=== PATIENT | female | born 1930 | race Caucasian/White ===

== ENCOUNTER 2016-10-10 12:51 | Emergency (ER) | payer MEDICARE, BC ==
[~2016-10-10] VITALS: Ht 160 cm; Wt 60.0 kg
[~2016-10-10 12:51] MED LIST: 1-ME1LIQ PO; APIX2.5T PO; CARD240C6 PO; ESCI10TA PO
[2016-10-10 12:53] VITALS: BP 126/98; PULSE 102; RESP 16; TEMP 97.4; O2SAT 98
[2016-10-10 14:31] VITALS: RESP 16; O2SAT 98
[2016-10-10] MEDS ORDERED: LEXA10TA PO (14:31)
[2016-10-10] MEDS ORDERED: PLAQ200T PO (14:31)
[2016-10-10] MEDS ORDERED: CARD120C4 PO (14:31)
[2016-10-10] MEDS ORDERED: APIX2.5T PO (14:31)
[2016-10-10 15:11] LABS: AUTOMATED NEUTROPHIL # 3.9 TH/MM3 (1.8-7.7); BASOPHIL % 0.7 % (0.0-2.0); EOSINOPHIL # 0.1 TH/MM3 (0-0.4); EOSINOPHIL % 2.1 % (0.0-4.0); HEMATOCRIT 38.2 % (35.0-46.0); HEMO FLAGS DIFF FINAL; LYMPH % 16.5 % (9.0-44.0); LYMPHOCYTE # 0.9 TH/MM3 (1.0-4.8); MEAN CELL VOLUME 98.4 FL (80.0-100.0); MEAN CORPUSCULAR HEMOGLOBIN 33.1 PG (27.0-34.0); MEAN CORPUSCULAR HGB CONC 33.6 % (32.0-36.0); MONO % 11.7 % (0.0-8.0); PLATELET COUNT 226 TH/MM3 (150-450); RED BLOOD COUNT 3.88 MIL/MM3 (4.00-5.30); RED CELL DISTRIBUTION WIDTH 13.5 % (11.6-17.2); WHITE BLOOD COUNT 5.7 TH/MM3 (4.0-11.0)
[2016-10-10 15:26] LABS: APTT (PATIENT) 29.6 SEC (24.3-30.1); PROTHROMBIN TIME - PATIENT 11.4 SEC (9.8-11.6)
[2016-10-10 15:35] LABS: ANION GAP 4 MEQ/L (5-15); BICARBONATE 28.9 MEQ/L (21.0-32.0); BLOOD UREA NITROGEN 18 MG/DL (7-18); CHLORIDE 100 MEQ/L (98-107); GLOMERULAR FILTRATION RATE 76 ML/MIN (>89); MAGNESIUM 2.2 MG/DL (1.5-2.5); POTASSIUM 4.8 MEQ/L (3.5-5.1); SODIUM (NA) 133 MEQ/L (136-145)
[2016-10-10 15:43] LABS: BACTERIA, URINE RARE /hpf; BLOOD, URINE NEG (NEG); GLUCOSE,URINE NEG (NEG); KETONE, URINE NEG (NEG); MUCUS URINE FEW /lpf (OCC); NITRITE,URINE NEG (NEG); SQUAMOUS EPITHELIAL CELL URINE 2 /hpf (0-5); URINE COLOR YELLOW (YELLW/STRAW)
[2016-10-10 15:44] LABS: COMMENT (UR) CULT NOT INDICATED; CULTURE IF INDICATED CULT NOT INDICATED
[2016-10-10 15:48] LABS: CREATINE KINASE 71 U/L (26-192)
--- NOTE | 2016-10-10 16:24 | PD ---
HPI Chief Complaint: Cardiac Complaint Time Seen by Provider: 16:23 Travel History International Travel<30 days: No Contact w/Intl Traveler<30days: No Traveled to known affect area: No History of Present Illness HPI 86-year-old female with a chronic history of A. fib that presents to the ED for evaluation of abnormal EKG done yesterday at Dr. Blanco's office. Patient is a patient of his. Patient follows up with him regularly. Patient states that he' s been taking Flecanaide for this and has been doing well and yesterday went for a checkup and did perform an EKG and she was sent home. The patient today the speeder machine operator office call her and told her to come here to get evaluated. She denies any other medical problem. She denies any symptoms of any kind. No chest pain or shortness of breath. No headache. No dizziness. No bleeding. Per patient she has no complaints other than what she was told that her EKG was abnormal. 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) Endocrine: No Gastrointestinal Disorders: Yes Genitourinary: No Hypertension: Yes Immune Disorder: No Inguinal Hernia: Yes (rt ab repair) Implanted Vascular Access Dvce: No Musculoskeletal: No Neurologic: No Psychiatric: Yes Reproductive: No Respiratory: Yes (HX PE) Tetanus Vaccination: > 5 Years Influenza Vaccination: Yes Menopausal: Yes Past Surgical History Abdominal Surgery: Yes (HERNIA REPAIR- RIGHT GROIN) Cardiac Surgery: Yes (ABLATION X3) Eye Surgery: Yes (cataracts) Other Surgery: Yes Social History Alcohol Use: Yes (SOCIALLY- WINE) Tobacco Use: No (QUIT 50+ YRS AGO SMOKED CIGS 1-2 PACKS BUT NOT FOR LONG PERIODS) Substance Use: No Allergies-Medications (Allergen,Severity, Reaction): Coded Allergies: Quinine (Verified Allergy, Intermediate, itching, 10/10/16) Reported Meds & Prescriptions Reported Meds & Active Scripts Active Reported Cardizem CD 24 HR (Diltiazem CD 24 HR) 120 Mg Caper 120 Mg PO DAILY Lexapro (Escitalopram Oxalate) 10 Mg Tab 10 Mg PO DAILY Eliquis (Apixaban) 2.5 Mg Tab 2.5 Mg PO BID Plaquenil (Hydroxychloroquine Sulfate) 200 Mg Tab 50 Mg PO DAILY Take with food Review of Systems Except as stated in HPI: all other systems reviewed are Neg Physical Exam Narrative GENERAL: SKIN: Warm and dry. HEAD: Atraumatic. Normocephalic. EYES: Pupils equal and round. No scleral icterus. No injection or drainage. ENT: No nasal bleeding or discharge. Mucous membranes pink and moist. Tongue is midline. No uvula deviation. NECK: Trachea midline. No JVD. CARDIOVASCULAR: Irregular rate and rhythm. No murmurs, S3, S4. RESPIRATORY: No accessory muscle use. Clear to auscultation. Breath sounds equal bilaterally. GASTROINTESTINAL: Abdomen soft, non-tender, nondistended. Hepatic and splenic margins not palpable. MUSCULOSKELETAL: Extremities without clubbing, cyanosis, or edema. No obvious deformities. NEUROLOGICAL: Awake and alert. No obvious cranial nerve deficits. Motor grossly within normal limits. Five out of 5 muscle strength in the arms and legs. Normal speech. PSYCHIATRIC: Appropriate mood and affect; insight and judgment normal. Data Data Last Documented VS Vital Signs Date Time Temp Pulse Resp B/P Pulse Ox O2 Delivery O2 Flow Rate FiO2 10/10/16 14:31 16 98 Room Air 10/10/16 12:53 97.4 102 126/98 Orders Electrocardiogram (10/10/16 14:29) Complete Blood Count With Diff (10/10/16 14:29) Basic Metabolic Panel (Bmp) (10/10/16 14:29) Ckmb (Isoenzyme) Profile (10/10/16 14:29) Troponin I (10/10/16 14:29) Prothrombin Time / Inr (Pt) (10/10/16 14:29) Act Partial Throm Time (Ptt) (10/10/16 14:29) Urinalysis - C+S If Indicated (10/10/16 14:29) Magnesium (Mg) (10/10/16 14:29) Thyroid Stimulating Hormone (10/10/16 14:29) Iv Access Insert/Monitor (10/10/16 14:29) Ecg Monitoring (10/10/16 14:29) Oximetry (10/10/16 14:29) Labs Laboratory Tests Test 10/10/16 14:40 White Blood Count 5.7 TH/MM3 Red Blood Count 3.88 MIL/MM3 Hemoglobin 12.8 GM/DL Hematocrit 38.2 % Mean Corpuscular Volume 98.4 FL Mean Corpuscular Hemoglobin 33.1 PG Mean Corpuscular Hemoglobin 33.6 % Concent Red Cell Distribution Width 13.5 % Platelet Count 226 TH/MM3 Mean Platelet Volume 8.3 FL Neutrophils (%) (Auto) 69.0 % Lymphocytes (%) (Auto) 16.5 % Monocytes (%) (Auto) 11.7 % Eosinophils (%) (Auto) 2.1 % Basophils (%) (Auto) 0.7 % Neutrophils # (Auto) 3.9 TH/MM3 Lymphocytes # (Auto) 0.9 TH/MM3 Monocytes # (Auto) 0.7 TH/MM3 Eosinophils # (Auto) 0.1 TH/MM3 Basophils # (Auto) 0.0 TH/MM3 CBC Comment DIFF FINAL Differential Comment Prothrombin Time 11.4 SEC Prothromb Time International 1.0 RATIO Ratio Activated Partial 29.6 SEC Thromboplast Time Urine Color YELLOW Urine Turbidity CLEAR Urine pH 6.0 Urine Specific Evangeline 1.014 Urine Protein NEG mg/dL Urine Glucose (UA) NEG mg/dL Urine Ketones NEG mg/dL Urine Occult Blood NEG Urine Nitrite NEG Urine Bilirubin NEG Urine Urobilinogen LESS THAN 2.0 MG/DL Urine Leukocyte Esterase TRACE Urine RBC 3 /hpf Urine WBC 4 /hpf Urine Squamous Epithelial 2 /hpf Cells Urine Bacteria RARE /hpf Urine Mucus FEW /lpf Microscopic Urinalysis Comment CULT NOT INDICATED Sodium Level 133 MEQ/L Potassium Level 4.8 MEQ/L Chloride Level 100 MEQ/L Carbon Dioxide Level 28.9 MEQ/L Anion Gap 4 MEQ/L Blood Urea Nitrogen 18 MG/DL Creatinine 0.72 MG/DL Estimat Glomerular Filtration 76 ML/MIN Rate Random Glucose 87 MG/DL Calcium Level 9.0 MG/DL Magnesium Level 2.2 MG/DL Total Creatine Kinase 71 U/L Troponin I LESS THAN 0.02 NG/ML Thyroid Stimulating Hormone 0.837 uIU/ML 3rd Gen [facility] Medical Decision Making Medical Screen Exam Complete: Yes Emergency Medical Condition: Yes Medical Record Reviewed: Yes Interpretation(s) EKG shows atrial fibrillation but no RVR. CBC & BMP Diagram 10/10/16 14:40 TSH normal. Troponin and CK-MB negative. UA negative. Differential Diagnosis Atrial fibrillation versus abnormal EKG versus ACS versus normal exam Narrative Course 86-year-old female that presents to the ED for evaluation of abnormal EKG. Patient was properly examined and was found to have no signs of acute medical distress. Patient has no complaints. EKG here which show atrial fibrillation but no sign of acute disease. This appears to be controlled. Labs were ordered. Dr. Blanco was consulted and states that he will come here and see the patient. He came here and evaluated everything and recommends that patient can be safely discharged home. Per Dr Blanco EKG abnormalities not present anymore and patient can be safely discharged home. This was discussed with the patient who is in agreement with going home. Patient is started reasons to come back. Told to take her medications as prescribed by her doctor. See ED for any worsening symptoms. Diagnosis Primary Impression: A-fib Qualified Code: I48.2 - Chronic atrial fibrillation Patient Instructions: General Instructions Additional Instructions: F/u with Dr Blanco. Continue your meds as prescribed. See ED if worst. Med/Other Pt SpecificInfo: No Change to Meds Disposition: 01 DISCHARGE HOME Condition: Stable Maximo Sparks Oct 10, 2016 16:24
[2016-10-10 16:35] VITALS: BP 136/77; TEMP 97.7
--- NOTE | 2016-10-10 18:07 | EKG ---
Date Performed: 10/10/2016 Time Performed: 15:00:04 PTAGE: 86 years EKG: ATRIAL FIBRILLATION/Flutter with aberrancy versus premature ventricular contractions. LEFT ANTERIOR FASCICULAR BLOCK Nonspecific T wave changes ABNORMAL ECG COMPARED TO PRIOR ELECTROCARDIOGRAM , Rate has slowed and aberrancy versus PVCs are present. PREVIOUS TRACING : 05/03/2015 12.49 DOCTOR: Nahum Fierro Interpretating Date/Time 10/10/2016 18:06:32
== END 2016-10-10 16:35 | disposition home or self-care (01) ==
LOC: NEPC 12:51
DX: I48.2 Chronic atrial fibrillation (principal); R94.31 Abnormal electrocardiogram [ECG] [EKG]; I10 Essential (primary) hypertension; E78.00 Pure hypercholesterolemia, unspecified; H91.90 Unspecified hearing loss, unspecified ear; Z79.01 Long term (current) use of anticoagulants; Z86.79 Personal history of other diseases of the circulatory system; Z86.59 Personal history of other mental and behavioral disorders; Z86.711 Personal history of pulmonary embolism
CPT/HCPCS: 80048; 81001; 82550; 83735; 84443; 84484; 85025; 85610; 85730; 93005

== ENCOUNTER 2017-05-09 11:47 | Inpatient (IN) | payer MEDICARE, BC ==
[2017-05-09] VITALS (7 sets, daily range): BP systolic 138–167; BP diastolic 80–111; PULSE 67–116; RESP 16–20; TEMP 97.8–97.9; O2SAT 95–96
[~2017-05-09] VITALS: Ht 162.6 cm; Wt 62.0 kg
[~2017-05-09 11:47] MED LIST changes: -1-ME1LIQ PO; +CARD120C4 PO; -CARD240C6 PO; -ESCI10TA PO; +LEXA10TA PO; +PLAQ200T PO
[2017-05-09 12:38] LABS: AUTOMATED NEUTROPHIL # 4.5 TH/MM3 (1.8-7.7); BASOPHIL # 0.1 TH/MM3 (0-0.2); BASOPHIL % 0.8 % (0.0-2.0); EOSINOPHIL # 0.1 TH/MM3 (0-0.4); EOSINOPHIL % 1.7 % (0.0-4.0); HEMATOCRIT 42.4 % (35.0-46.0); HEMOGLOBIN 14.2 GM/DL (11.6-15.3); LYMPH % 16.3 % (9.0-44.0); LYMPHOCYTE # 1.1 TH/MM3 (1.0-4.8); MEAN CELL VOLUME 98.9 FL (80.0-100.0); MEAN CORPUSCULAR HGB CONC 33.4 % (32.0-36.0); MEAN PLATELET VOLUME 7.7 FL (7.0-11.0); MONO % 12.2 % (0.0-8.0); MONOCYTE # 0.8 TH/MM3 (0-0.9); PLATELET COUNT 250 TH/MM3 (150-450); RED BLOOD COUNT 4.29 MIL/MM3 (4.00-5.30); RED CELL DISTRIBUTION WIDTH 13.5 % (11.6-17.2); WHITE BLOOD COUNT 6.5 TH/MM3 (4.0-11.0)
[2017-05-09 12:51] LABS: INTERNATIONAL NORMALIZED RATIO 1.1 RATIO; PROTHROMBIN TIME - PATIENT 11.3 SEC (9.8-11.6)
[2017-05-09 13:00] LABS: ALBUMIN 3.7 GM/DL (3.4-5.0); ALT (GPT) 48 U/L (10-53); AST (GOT) 50 U/L (15-37); BICARBONATE 24.5 MEQ/L (21.0-32.0); BLOOD UREA NITROGEN 17 MG/DL (7-18); CALCIUM 8.8 MG/DL (8.5-10.1); CHLORIDE 99 MEQ/L (98-107); CREATININE 0.71 MG/DL (0.50-1.00); GLOMERULAR FILTRATION RATE 78 ML/MIN (>89); GLUCOSE,RANDOM 117 MG/DL (74-106); MAGNESIUM 2.1 MG/DL (1.5-2.5); SODIUM (NA) 132 MEQ/L (136-145)
[2017-05-09 13:05] LABS: ALKALINE PHOSPHATASE 126 U/L (45-117); TOTAL BILIRUBIN ADULT 1.2 MG/DL (0.2-1.0); TOTAL PROTEIN 7.8 GM/DL (6.4-8.2); TROPONIN I LESS THAN 0.02 NG/ML (0.02-0.05)
--- NOTE | 2017-05-09 14:11 | RADRPT ---
EXAM DATE/TIME: 05/09/2017 12:45 [place] COMPARISON: CHEST SINGLE AP, May 03, 2015, 13:34. INDICATIONS : Cardiac episode. Patient was sent to the emergency room by her primary doctor due to an abnormal EKG . MEDICAL HISTORY : Hypertension. SURGICAL HISTORY : Cardiac ablasion. ENCOUNTER: Initial ACUITY: 1 day PAIN SCORE: 0/10 LOCATION: Bilateral chest FINDINGS: Lung hyperexpansion with diffuse interstitial prominence. Minimal airspace disease at the left lung b ase similar to previous exam. Stable enlargement of the cardiac silhouette. Remainder the exam is unc hanged. CONCLUSION: 1. Changes of obstructive pulmonary disease. 2. Stable minimal left basilar airspace disease, likely atelectasis or scarring. Donal Mcclure MD on May 09, 2017 at 14:08 Board Certified Radiologist. This report was verified electronically.
--- NOTE | 2017-05-09 16:04 | PD ---
HPI Chief Complaint: Cardiac Complaint Time Seen by Provider: 15:51 Travel History International Travel<30 days: No Contact w/Intl Traveler<30days: No Traveled to known affect area: No History of Present Illness HPI 87-year-old female patient of Dr. Blanco, presents the emergency department after being seen by his office, and had a notable concerning EKG suggestive of bigeminy. Patient was recently seen here in the hospital on May 03 for age or fibrillation with RVR. Patient states she recently stopped her flecainide. Patient has no symptoms of pain, chest pain, nausea, or significant weakness. She does states she's been short of breath with exertion over the past week. She denies significant edema in her legs. Labs were ordered in triage. EKG as well as chest x-ray were performed as well. Patient is currently pain-free and comfortable. She is allergic to quinine. 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) Endocrine: No Gastrointestinal Disorders: Yes Genitourinary: No Hypertension: Yes Immune Disorder: No Inguinal Hernia: Yes (rt ab repair) Implanted Vascular Access Dvce: No Musculoskeletal: No Neurologic: No Psychiatric: Yes Reproductive: No Respiratory: Yes (HX PE) Menopausal: Yes Past Surgical History Abdominal Surgery: Yes (HERNIA REPAIR- RIGHT GROIN) Cardiac Surgery: Yes (ABLATION X3) Eye Surgery: Yes (cataracts) Other Surgery: Yes Social History Alcohol Use: Yes (SOCIALLY- WINE) Tobacco Use: No (QUIT 50+ YRS AGO SMOKED CIGS 1-2 PACKS BUT NOT FOR LONG PERIODS) Substance Use: No Allergies-Medications (Allergen,Severity, Reaction): Coded Allergies: quinine (Unverified Allergy, Intermediate, itching, 12/12/16) Reported Meds & Prescriptions Reported Meds & Active Scripts Active Reported Cardizem CD 24 HR (Diltiazem CD 24 HR) 120 Mg Caper 120 Mg PO DAILY Lexapro (Escitalopram Oxalate) 10 Mg Tab 10 Mg PO DAILY Eliquis (Apixaban) 2.5 Mg Tab 2.5 Mg PO BID Plaquenil (Hydroxychloroquine Sulfate) 200 Mg Tab 50 Mg PO DAILY Take with food Review of Systems Except as stated in HPI: all other systems reviewed are Neg General / Constitutional: No: Fever Eyes: No: Visual changes HENT: No: Headaches Cardiovascular: Positive: Irregular Rhythm, Dyspnea on exertion, No: Chest Pain or Discomfort Respiratory: No: Shortness of Breath Gastrointestinal: No: Abdominal Pain Genitourinary: No: Dysuria Musculoskeletal: No: Pain Skin: No Rash Neurologic: No: Weakness Psychiatric: No: Depression Endocrine: No: Polydipsia Hematologic/Lymphatic: No: Easy Bruising Physical Exam Narrative GENERAL: Patient appears in no obvious distress. She is alert and oriented 3. SKIN: Warm and dry. Normal color. Normal turgor. HEAD: Atraumatic. Normocephalic. EYES: Pupils equal and round. No scleral icterus. No injection or drainage. ENT: No nasal bleeding or discharge. Mucous membranes pink and moist. NECK: Trachea midline. No JVD. CARDIOVASCULAR: Irregular rate and rhythm. RESPIRATORY: No accessory muscle use. Clear to auscultation. Breath sounds equal bilaterally. GASTROINTESTINAL: Abdomen soft, non-tender, nondistended. Hepatic and splenic margins not palpable. MUSCULOSKELETAL: Extremities without clubbing, cyanosis, or edema. No obvious deformities. NEUROLOGICAL: Awake and alert. No obvious cranial nerve deficits. Motor grossly within normal limits. Five out of 5 muscle strength in the arms and legs. Normal speech. PSYCHIATRIC: Appropriate mood and affect; insight and judgment normal. Data Data Last Documented VS Vital Signs Date Time Temp Pulse Resp B/P (MAP) Pulse Ox O2 Delivery O2 Flow Rate FiO2 05/09/17 15:31 70 05/09/17 11:49 97.9 20 151/100 (117) 96 Room Air Orders Orders Electrocardiogram (05/09/17 12:03) Ckmb (Isoenzyme) Profile (05/09/17 12:03) Complete Blood Count With Diff (05/09/17 12:03) Comprehensive Metabolic Panel (05/09/17 12:03) Magnesium (Mg) (05/09/17 12:03) Prothrombin Time / Inr (Pt) (05/09/17 12:03) Act Partial Throm Time (Ptt) (05/09/17 12:03) Troponin I (05/09/17 12:03) Chest, Pa & Lat (05/09/17 12:03) Labs Laboratory Tests Test 05/09/17 12:19 White Blood Count 6.5 TH/MM3 Red Blood Count 4.29 MIL/MM3 Hemoglobin 14.2 GM/DL Hematocrit 42.4 % Mean Corpuscular Volume 98.9 FL Mean Corpuscular Hemoglobin 33.0 PG Mean Corpuscular Hemoglobin Concent 33.4 % Red Cell Distribution Width 13.5 % Platelet Count 250 TH/MM3 Mean Platelet Volume 7.7 FL Neutrophils (%) (Auto) 69.0 % Lymphocytes (%) (Auto) 16.3 % Monocytes (%) (Auto) 12.2 % Eosinophils (%) (Auto) 1.7 % Basophils (%) (Auto) 0.8 % Neutrophils # (Auto) 4.5 TH/MM3 Lymphocytes # (Auto) 1.1 TH/MM3 Monocytes # (Auto) 0.8 TH/MM3 Eosinophils # (Auto) 0.1 TH/MM3 Basophils # (Auto) 0.1 TH/MM3 CBC Comment DIFF FINAL Differential Comment Prothrombin Time 11.3 SEC Prothromb Time International Ratio 1.1 RATIO Activated Partial Thromboplast Time 28.4 SEC Blood Urea Nitrogen 17 MG/DL Creatinine 0.71 MG/DL Random Glucose 117 MG/DL Total Protein 7.8 GM/DL Albumin 3.7 GM/DL Calcium Level 8.8 MG/DL Magnesium Level 2.1 MG/DL Alkaline Phosphatase 126 U/L Aspartate Amino Transf (AST/SGOT) 50 U/L Alanine Aminotransferase (ALT/SGPT) 48 U/L Total Bilirubin 1.2 MG/DL Sodium Level 132 MEQ/L Potassium Level 4.7 MEQ/L Chloride Level 99 MEQ/L Carbon Dioxide Level 24.5 MEQ/L Anion Gap 9 MEQ/L Estimat Glomerular Filtration Rate 78 ML/MIN Total Creatine Kinase 62 U/L Troponin I LESS THAN 0.02 NG/ML MDM Medical Decision Making Medical Screen Exam Complete: Yes Emergency Medical Condition: Yes Medical Record Reviewed: Yes Differential Diagnosis A regular cardiac rhythm. Bigeminy. Need for cardiology intervention. Narrative Course Patient is medically stable at time of exam. EKG shows possible bigeminy with a rhythm of 88 bpm. Labs show unremarkable CBC, CMP is unremarkable except for sodium 132. Troponin is less than 0.02. Chest x-ray shows COPD changes but nothing acute per radiologist. Call was placed to Dr. Blanco's office, and I was told he would be here in the emergency department approximately [address] Blanco was in to see the patient, and requested that she be admitted to the hospitalist with consult to him for probable cardioversion tomorrow. Call was placed to the hospitalist for admission. Diagnosis Primary Impression: Tachyarrhythmia Admitting Information Admitting Physician Requests: Admit Condition: Stable Alessandro De Jesus May 09, 2017 16:04
--- NOTE | 2017-05-09 16:25 | PD ---
Physical Exam Date Seen by Provider: May 09, 2017 Time Seen by Provider: 16:21 Narrative The patient is a 87-year-old female was initially evaluated by the mid-level provider. Please refer to the initial history, physical, diagnostic evaluation , and treatment modality plan. Data Data Last Documented VS Vital Signs Date Time Temp Pulse Resp B/P (MAP) Pulse Ox O2 Delivery O2 Flow Rate FiO2 05/09/17 15:31 70 05/09/17 11:49 97.9 20 151/100 (117) 96 Room Air Orders Orders Electrocardiogram (05/09/17 12:03) Ckmb (Isoenzyme) Profile (05/09/17 12:03) Complete Blood Count With Diff (05/09/17 12:03) Comprehensive Metabolic Panel (05/09/17 12:03) Magnesium (Mg) (05/09/17 12:03) Prothrombin Time / Inr (Pt) (05/09/17 12:03) Act Partial Throm Time (Ptt) (05/09/17 12:03) Troponin I (05/09/17 12:03) Chest, Pa & Lat (05/09/17 12:03) Consult Cardiology (05/09/17 ) (Hub Use Only)Inp Phy Cons/Ref (05/09/17 ) Admit Order (Ed Use Only) (05/09/17 17:03) Labs Laboratory Tests Test 05/09/17 12:19 White Blood Count 6.5 TH/MM3 Red Blood Count 4.29 MIL/MM3 Hemoglobin 14.2 GM/DL Hematocrit 42.4 % Mean Corpuscular Volume 98.9 FL Mean Corpuscular Hemoglobin 33.0 PG Mean Corpuscular Hemoglobin Concent 33.4 % Red Cell Distribution Width 13.5 % Platelet Count 250 TH/MM3 Mean Platelet Volume 7.7 FL Neutrophils (%) (Auto) 69.0 % Lymphocytes (%) (Auto) 16.3 % Monocytes (%) (Auto) 12.2 % Eosinophils (%) (Auto) 1.7 % Basophils (%) (Auto) 0.8 % Neutrophils # (Auto) 4.5 TH/MM3 Lymphocytes # (Auto) 1.1 TH/MM3 Monocytes # (Auto) 0.8 TH/MM3 Eosinophils # (Auto) 0.1 TH/MM3 Basophils # (Auto) 0.1 TH/MM3 CBC Comment DIFF FINAL Differential Comment Prothrombin Time 11.3 SEC Prothromb Time International Ratio 1.1 RATIO Activated Partial Thromboplast Time 28.4 SEC Blood Urea Nitrogen 17 MG/DL Creatinine 0.71 MG/DL Random Glucose 117 MG/DL Total Protein 7.8 GM/DL Albumin 3.7 GM/DL Calcium Level 8.8 MG/DL Magnesium Level 2.1 MG/DL Alkaline Phosphatase 126 U/L Aspartate Amino Transf (AST/SGOT) 50 U/L Alanine Aminotransferase (ALT/SGPT) 48 U/L Total Bilirubin 1.2 MG/DL Sodium Level 132 MEQ/L Potassium Level 4.7 MEQ/L Chloride Level 99 MEQ/L Carbon Dioxide Level 24.5 MEQ/L Anion Gap 9 MEQ/L Estimat Glomerular Filtration Rate 78 ML/MIN Total Creatine Kinase 62 U/L Troponin I LESS THAN 0.02 NG/ML [facility] Medical Record Reviewed: Yes Supervised Visit with KUNAL: Yes Interpretation(s) EKG from the physician's office reveals a tachycardia with apparent left bundle- branch block with QRS of 190 ms, may be left bundle-branch block with sinus tachycardia versus ventricular tachycardia EKG in the emergency department reveals alternating rhythm of supraventricular be alternated with PVC versus left bundle-branch block, possibly bigeminy. Rate was 88. Laboratory Tests Test 05/09/17 12:19 White Blood Count 6.5 TH/MM3 Red Blood Count 4.29 MIL/MM3 Hemoglobin 14.2 GM/DL Hematocrit 42.4 % Mean Corpuscular Volume 98.9 FL Mean Corpuscular Hemoglobin 33.0 PG Mean Corpuscular Hemoglobin Concent 33.4 % Red Cell Distribution Width 13.5 % Platelet Count 250 TH/MM3 Mean Platelet Volume 7.7 FL Neutrophils (%) (Auto) 69.0 % Lymphocytes (%) (Auto) 16.3 % Monocytes (%) (Auto) 12.2 % Eosinophils (%) (Auto) 1.7 % Basophils (%) (Auto) 0.8 % Neutrophils # (Auto) 4.5 TH/MM3 Lymphocytes # (Auto) 1.1 TH/MM3 Monocytes # (Auto) 0.8 TH/MM3 Eosinophils # (Auto) 0.1 TH/MM3 Basophils # (Auto) 0.1 TH/MM3 CBC Comment DIFF FINAL Differential Comment Prothrombin Time 11.3 SEC Prothromb Time International Ratio 1.1 RATIO Activated Partial Thromboplast Time 28.4 SEC Blood Urea Nitrogen 17 MG/DL Creatinine 0.71 MG/DL Random Glucose 117 MG/DL Total Protein 7.8 GM/DL Albumin 3.7 GM/DL Calcium Level 8.8 MG/DL Magnesium Level 2.1 MG/DL Alkaline Phosphatase 126 U/L Aspartate Amino Transf (AST/SGOT) 50 U/L Alanine Aminotransferase (ALT/SGPT) 48 U/L Total Bilirubin 1.2 MG/DL Sodium Level 132 MEQ/L Potassium Level 4.7 MEQ/L Chloride Level 99 MEQ/L Carbon Dioxide Level 24.5 MEQ/L Anion Gap 9 MEQ/L Estimat Glomerular Filtration Rate 78 ML/MIN Total Creatine Kinase 62 U/L Troponin I LESS THAN 0.02 NG/ML Last Impressions Chest X-Ray 05/09/17 1203 Signed Impressions: Service Date/Time: Tuesday, May 09, 2017 12:45 - CONCLUSION: 1. Changes of obstructive pulmonary disease. 2. Stable minimal left basilar airspace disease, likely atelectasis or scarring. Donal Mcclure MD Differential Diagnosis Differential diagnosis includes left bundle-branch block, arrhythmia, bigeminy, medication side effect, A. fib with aberrancy, ventricular tachycardia, electrolyte abnormality. Narrative Course I, Dr. Coe, have reviewed the advance practice practitioner's documentation and am in agreement, met with the patient face to face, made the diagnosis, and the medical decision making was done by me. *My assessment and Findings: The patient was initially evaluated by the mid- level provider. Please refer to the initial history, physical, diagnostic evaluation, treatment modality plan. The patient was seen by her technical sales representative/ nurse rn bsn this morning, Dr. Blanco, who performed a EKG and referred her to the emergency department. The patient last took flecanide this a.m. The patient was sent to the emergency department by her nurse rn bsn. Potassium was 4.7 and magnesium is 2.1. The patient was evaluated by her nurse rn bsn in the emergency Department who recommends admission with consultation to himself for possible cardioversion tomorrow. The patient's primary physician is Dr. Paniagua, [facility] Physician Communication Physician Communication [facility] I discussed the patient Dr. Hightower who agrees with admission. Diagnosis Primary Impression: Tachyarrhythmia Additional Impression: Dysrhythmia, cardiac Qualified Codes: I49.9 - Cardiac arrhythmia, unspecified Admitting Information Admitting Physician Requests: Admit Condition: Stable Blaze Coe MD May 09, 2017 16:25
[2017-05-09] MEDS ORDERED: BISACODYL 10 MG SUPP RECTAL PRN (18:15)
[2017-05-09] MEDS ORDERED: ACETAMINOPHEN 325 MG TAB PO PRN (18:15)
[2017-05-09] MEDS ORDERED: NALOXONE HCL 0.4 MG/ML AMP IV PUSH PRN (18:15)
[2017-05-09] MEDS ORDERED: ENALAPRILAT 1.25 MG/ML VIAL IV PUSH PRN (18:15)
[2017-05-09] MEDS ORDERED: SENNOSIDES 8.6 MG TAB PO PRN (18:15)
[2017-05-09] MEDS ORDERED: SODIUM CHLORIDE 0.9% FLUSH 10 ML FLUSH IV FLUSH PRN (18:15)
[2017-05-09] MEDS ORDERED: ONDANSETRON HCL 4 MG/2 ML VIAL IVP PRN (18:15)
[2017-05-09] MEDS ORDERED: MAGNESIUM HYDROXIDE SUSP 30 ML CUP PO PRN (18:15)
--- NOTE | 2017-05-09 18:15 | HHI.HP ---
HPI Service [facility] Primary Care Physician Unknown Admission Diagnosis dysrhythmia, tachyarrhythmia, nonsustained V. tach Diagnoses: Chief Complaint: Tachyarrhythmia Travel History International Travel<30 Days: No Contact w/Intl Traveler <30 Da: No Traveled to Known Affected Are: No History of Present Illness Patient is an 87-year-old female with primary medical history of atrial fibrillation with RVR on Eliquis, depression, HTN, history of SVTs, basal cell carcinoma came into the hospital as advised by her clock repairer Dr. Blanco after seeing her in the office today. Patient states that she was at the clock repairer office this morning and he did an EKG on her states that the clock repairer think that her EKG is not looking good and was abnormal and was advised to go to ED and she will be admitted. Patient states that Dr. BAKER plans to "shock me, tomorrow." Patient complains of shortness of breath on exertion. Patient denies any chest pain, palpitations, headaches, dizziness. Denies any fevers, chills, nausea, vomiting, diarrhea. Denies dysuria Review of Systems Except as stated in HPI: all other systems reviewed are Neg Past Family Social History Past Medical History A. fib with RVR on Eliquis Depression-HTN History of SVT Basal cell carcinoma Past Surgical History Ablation 2 Cataract surgery Inguinal hernia repair Reported Medications Reported Meds & Active Scripts Active Reported Cardizem CD 24 HR (Diltiazem CD 24 HR) 120 Mg Caper 120 Mg PO DAILY Lexapro (Escitalopram Oxalate) 10 Mg Tab 10 Mg PO DAILY Eliquis (Apixaban) 2.5 Mg Tab 2.5 Mg PO BID Allergies: Coded Allergies: quinine (Unverified Allergy, Intermediate, itching, 05/09/17) Family History Mother father of cancer, father has hypertension and some heart disease Social History Occasional alcohol use, drinks 2 glasses of wine yesterday because it was her birthday Denies tobacco use Denies illicit drug use Physical Exam Vital Signs Vital Signs Date Time Temp Pulse Resp B/P (MAP) Pulse Ox O2 Delivery O2 Flow Rate FiO2 1/10/18 17:20 109 16 167/108 (127) 96 Room Air 05/09/17 15:31 70 05/09/17 11:49 97.9 116 20 151/100 (117) 96 Room Air Physical Exam GENERAL: This is a well-nourished, younger than stated age, well-developed patient, in no apparent distress. SKIN: Warm and dry. HEAD: Atraumatic. Normocephalic. No temporal or scalp tenderness. EYES: Pupils equal round and reactive. Extraocular motions intact. No scleral icterus. No injection or drainage. ENT: Nose without bleeding, purulent drainage or septal hematoma. Throat without erythema, tonsillar hypertrophy or exudate. Uvula midline. Airway patent. NECK: Trachea midline. No JVD or lymphadenopathy. Supple, nontender, no meningeal signs. CARDIOVASCULAR: Irregular rate and rhythm with 3/6 murmurs. No gallops, or rubs. RESPIRATORY: Diminished bases. No wheezes, rales, or rhonchi. GASTROINTESTINAL: Abdomen soft, non-tender, nondistended. Bowel sounds active 4. No guarding. MUSCULOSKELETAL: Extremities without clubbing, cyanosis. Bilateral lower extremities trace edema. NEUROLOGICAL: Awake and alert. Cranial nerves II through XII intact. Motor and sensory grossly within normal limits. No focal neuro deficit. Normal speech. Laboratory Laboratory Tests Test 05/09/17 12:19 White Blood Count 6.5 Red Blood Count 4.29 Hemoglobin 14.2 Hematocrit 42.4 Mean Corpuscular Volume 98.9 Mean Corpuscular Hemoglobin 33.0 Mean Corpuscular Hemoglobin Concent 33.4 Red Cell Distribution Width 13.5 Platelet Count 250 Mean Platelet Volume 7.7 Neutrophils (%) (Auto) 69.0 Lymphocytes (%) (Auto) 16.3 Monocytes (%) (Auto) 12.2 Eosinophils (%) (Auto) 1.7 Basophils (%) (Auto) 0.8 Neutrophils # (Auto) 4.5 Lymphocytes # (Auto) 1.1 Monocytes # (Auto) 0.8 Eosinophils # (Auto) 0.1 Basophils # (Auto) 0.1 CBC Comment DIFF FINAL Differential Comment Prothrombin Time 11.3 Prothromb Time International Ratio 1.1 Activated Partial Thromboplast Time 28.4 Blood Urea Nitrogen 17 Creatinine 0.71 Random Glucose 117 Total Protein 7.8 Albumin 3.7 Calcium Level 8.8 Magnesium Level 2.1 Alkaline Phosphatase 126 Aspartate Amino Transf (AST/SGOT) 50 Alanine Aminotransferase (ALT/SGPT) 48 Total Bilirubin 1.2 Sodium Level 132 Potassium Level 4.7 Chloride Level 99 Carbon Dioxide Level 24.5 Anion Gap 9 Estimat Glomerular Filtration Rate 78 Total Creatine Kinase 62 Troponin I LESS THAN 0.02 Result Diagram: 05/09/17 1219 05/09/17 1219 Imaging Last Impressions Chest X-Ray 05/09/17 1203 Signed Impressions: Service Date/Time: Tuesday, May 09, 2017 12:45 - CONCLUSION: 1. Changes of obstructive pulmonary disease. 2. Stable minimal left basilar airspace disease, likely atelectasis or scarring. MD Rakel Gomez VTE Risk Assessment Rakel VTE Risk Assessment: Mod/High Risk (score >= 2) Rakel Risk Assessment Model Point Value = 1 Point Value = 2 Point Value = 3 Point Value = 5 Age 41-60 Minor surgery BMI > 25 kg/m2 Swollen legs Varicose veins or History of unexplained or recurrent spontaneous Oral contraceptives or hormone replacement Sepsis (< 1 month) Serious lung disease, including pneumonia (< 1 month) Abnormal pulmonary function Acute myocardial infarction Congestive heart failure (< 1 month) History of inflammatory bowel disease Medical patient at bed rest Age 61-74 Arthroscopic surgery Major open surgery (> 45 min) Laparoscopic surgery (> 45 min) Malignancy Confined to bed (> 72 hours) Immobilizing plaster cast Central venous access Age >= 75 History of VTE Family history of VTE Factor V Leiden Prothrombin [id number] Lupus anticoagulant Anticardiolipin antibodies Elevated serum homocysteine Heparin-induced thrombocytopenia Other congenital or acquired thrombophilia Stroke (< 1 month) Elective arthroplasty Hip, pelvis, or leg fracture Acute spinal cord injury (< 1 month) Prophylaxis Regimen Total Risk Factor Score Risk Level Prophylaxis Regimen 0-1 Low Early ambulation 2 Moderate Order ONE of the following: *Sequential Compression Device (SCD) *Heparin 5000 units SQ BID 3-4 Higher Order ONE of the following medications: *Heparin 5000 units SQ TID *Enoxaparin/Lovenox 40 mg SQ daily (WT < 150 kg, CrCl > 30 mL/min) *Enoxaparin/Lovenox 30 mg SQ daily (WT < 150 kg, CrCl > 10-29 mL/min) *Enoxaparin/Lovenox 30 mg SQ BID (WT < 150 kg, CrCl > 30 mL/min) AND/OR *Sequential Compression Device (SCD) 5 or more Highest Order ONE of the following medications: *Heparin 5000 units SQ TID (Preferred with Epidurals) *Enoxaparin/Lovenox 40 mg SQ daily (WT < 150 kg, CrCl > 30 mL/min) *Enoxaparin/Lovenox 30 mg SQ daily (WT < 150 kg, CrCl > 10-29 mL/min) *Enoxaparin/Lovenox 30 mg SQ BID (WT < 150 kg, CrCl > 30 mL/min) AND *Sequential Compression Device (SCD) Assessment and Plan Problem List: (1) Tachyarrhythmia ICD Code: R00.0 - Tachyarrhythmia Status: Chronic (2) Dysrhythmia, cardiac ICD Code: I49.9 - Cardiac arrhythmia, unspecified Status: Acute (3) A-fib ICD Code: I48.91 - A-fib Status: Chronic Assessment and Plan Patient is an 87-year-old female with primary medical history of atrial fibrillation with RVR on Eliquis, depression, HTN, history of SVTs, basal cell carcinoma came into the hospital as advised by her clock repairer Dr. Blanco after seeing her in office and alert abnormal EKG. Tachyarrhythmia History of A. fib with RVR HTN - EKG left bundle branch block, wide complex ventricular rhythm appears to be in bigeminy - Consult cardiology Dr. Gomez plan for cardioversion tomorrow - Nothing by mouth after midnight - Telemetry - Continue Eliquis for now continue home medication, diltiazem 120 mg daily - Monitor BP trend Depression - Restart the citalopram tomorrow postprocedure DVT prop Eliquis Code Status Full code Discussed Condition With Patient, nursing, Dr. Hightower Physician Certification Order for Inpatient Services The services are ordered in accordance with Medicare regulations or non- Medicare payer requirements, as applicable. In the case of services not specified as inpatient-only, they are appropriately provided as inpatient services in accordance with the 2-midnight benchmark. days is the estimated time the patient will need to remain in the hospital, assuming treatment plan goals are met and no additional complications. Problem Qualifiers (1) Dysrhythmia, cardiac: Qualified Codes: I49.9 - Cardiac arrhythmia, unspecified Argenis Alexander May 09, 2017 18:15
[2017-05-09] MEDS: SODIUM CHLORIDE 0.9% FLUSH 10 ML FLUSH IV FLUSH SCH (20:51)
[2017-05-09] MEDS: APIXABAN 2.5 MG TABLET PO SCH (20:51)
[2017-05-10] VITALS (23 sets, daily range): BP systolic 123–152; BP diastolic 68–95; PULSE 54–106; RESP 16–18; TEMP 97.6–98.3; O2SAT 94–98
[2017-05-10 04:45] LABS: HEMOGLOBIN 12.7 GM/DL (11.6-15.3); MEAN CORPUSCULAR HEMOGLOBIN 33.3 PG (27.0-34.0); MEAN CORPUSCULAR HGB CONC 34.3 % (32.0-36.0); MEAN PLATELET VOLUME 7.9 FL (7.0-11.0); PLATELET COUNT 228 TH/MM3 (150-450); RED BLOOD COUNT 3.81 MIL/MM3 (4.00-5.30); RED CELL DISTRIBUTION WIDTH 13.2 % (11.6-17.2); WHITE BLOOD COUNT 5.1 TH/MM3 (4.0-11.0)
[2017-05-10 05:20] LABS: ALKALINE PHOSPHATASE 89 U/L (45-117); ALT (GPT) 34 U/L (10-53); AST (GOT) 26 U/L (15-37); BICARBONATE 25.3 MEQ/L (21.0-32.0); BLOOD UREA NITROGEN 17 MG/DL (7-18); CALCIUM 8.3 MG/DL (8.5-10.1); CHLORIDE 103 MEQ/L (98-107); CREATININE 0.63 MG/DL (0.50-1.00); GLOMERULAR FILTRATION RATE 89 ML/MIN (>89); GLUCOSE,RANDOM 76 MG/DL (74-106); SODIUM (NA) 137 MEQ/L (136-145); TOTAL PROTEIN 6.2 GM/DL (6.4-8.2)
[2017-05-10 05:34] LABS: LYMPHOCYTES 18 % (9-44); MONOCYTES 6 % (0-8); NEUTROPHIL # MANUAL DIFF 3.8 TH/MM3 (1.8-7.7); POLYS (SEG NEUTROPHILS) 74 % (16-70)
[2017-05-10] MEDS: ESCITALOPRAM OXALATE 10 MG TAB PO SCH (07:54)
[2017-05-10] MEDS: DILTIAZEM-CD 120 MG CAP ER PO SCH (07:54)
[2017-05-10] MEDS: APIXABAN 2.5 MG TABLET PO SCH ×3 (07:54→21:21)
[2017-05-10] MEDS: SODIUM CHLORIDE 0.9% FLUSH 10 ML FLUSH IV FLUSH SCH ×2 (07:54→21:21)
--- NOTE | 2017-05-10 15:21 | HHI.PR ---
Subjective Remarks Status post cardioversion. No chest pain or other complaints. She is now in sinus rhythm. Objective Vital Signs Date Time Temp Pulse Resp B/P (MAP) Pulse Ox O2 Delivery O2 Flow Rate FiO2 05/10/17 12:01 90 05/10/17 11:01 98.1 88 18 152/95 (114) 98 05/10/17 11:00 95 05/10/17 10:01 106 05/10/17 09:00 90 05/10/17 08:01 98.2 82 18 151/87 (108) 95 05/10/17 08:00 84 05/10/17 07:01 79 05/10/17 04:00 97.8 54 18 130/74 (92) 97 05/10/17 03:00 71 05/10/17 02:00 66 05/10/17 01:00 61 05/10/17 00:00 63 05/10/17 00:00 98.0 57 16 123/79 (94) 97 05/09/17 23:00 77 05/09/17 22:00 89 05/09/17 21:00 69 05/09/17 20:00 81 05/09/17 20:00 97.8 81 18 138/80 (99) 95 05/09/17 18:43 97.8 67 18 165/111 (129) 95 05/09/17 18:06 05/09/17 17:20 109 16 167/108 (127) 96 Room Air 05/09/17 15:31 70 I/O 05/09/17 05/09/17 05/09/17 05/10/17 05/10/17 05/10/17 06:59 14:59 22:59 06:59 14:59 22:59 Intake Total 0 ml Balance 0 ml Intake Oral 0 ml # Voids 1 5 # Bowel Movements 0 Result Diagram: 05/10/1731205/10/17312 Objective Remarks GENERAL: NAD, A&Ox3 HEAD: Normocephalic. NECK: Supple, trachea midline. No lymphadenopathy. EYES: No scleral icterus. No injection or drainage. CARDIOVASCULAR: Regular rate and rhythm without murmurs, gallops, or rubs. RESPIRATORY: Breath sounds equal bilaterally. No accessory muscle use. GASTROINTESTINAL: Abdomen soft, non-tender, nondistended. MUSCULOSKELETAL: No cyanosis, or edema. SKIN: Warm and dry. NEURO: No focal neurological deficitis. A/P Problem List: (1) Tachyarrhythmia ICD Code: R00.0 - Tachyarrhythmia Status: Chronic (2) A-fib ICD Code: I48.91 - A-fib Status: Chronic (3) Dysrhythmia, cardiac ICD Code: I49.9 - Cardiac arrhythmia, unspecified Status: Acute Assessment and Plan 87-year-old female admitted with A. fib RVR. Tachyarrhythmia A. fib with RVR Status post cardioversion. Follow-up telemetry. Continue diltiazem Continue Eliquis Hypertension Follow blood pressures No change to baseline treatment right now Depression Restart Lexapro DVT Eliquis Discharge Planning Possible DC tomorrow if she remains in stable condition post cardioversion Problem Qualifiers (1) Dysrhythmia, cardiac: Qualified Codes: I49.9 - Cardiac arrhythmia, unspecified Jb Morfin MD May 10, 2017 15:21
--- NOTE | 2017-05-10 15:29 | MB ---
cc: MARGARITO BEST M.D. DATE OF CONSULTATION: 05/10/2017 HISTORY OF PRESENT ILLNESS Mrs. Sánchez is a 87-year-old female with atrial fibrillation, wide complex tachyarrhythmia, atrial fibrillation with biventricular response, admitted for tachyarrhythmia management. The chart was reviewed. The patient was evaluated. ALLERGIES QUININE. SOCIAL HISTORY Negative for smoking, drinks occasionally. FAMILY HISTORY Noncontributory to her current medical condition. MEDICATIONS Cardizem and Eliquis. REVIEW OF SYSTEMS The patient refers no chest pain, no chest discomfort. No fever. PHYSICAL EXAMINATION GENERAL: Alert, fully oriented. VITAL SIGNS: Her blood pressure was on evaluation this morning 151/87, pulse 82, respiratory rate 18. LUNGS: Ventilated. CARDIOVASCULAR: S1-S2, irregular. No gallop. ABDOMEN: Soft. No mass. EXTREMITIES: With no edema. ELECTROCARDIOGRAM Atrial fibrillation and PVCs, aberrant conduction. LABORATORY DATA Hemoglobin 12.7, white blood cell 5.1, potassium 3.7, creatinine 0.63, troponin less than 0.02, magnesium 2.1. ASSESSMENT AND RECOMMENDATIONS Mrs. Sánchez was on flecainide. She has wide complex tachyarrhythmia. Flecainide will be discontinued. She is in atrial fibrillation. I will proceed with cardioversion. If the patient is back in atrial fibrillation again, I will consider AV node modification or Tikosyn administration. The case was discussed with the patient. The risks, the nature and the benefit of the cardioversion is discussed with her. The risks include pneumothorax, cardiac arrest, need for pacing support and even . She understood and agreed to proceed. Margarito Best MD HS/TLL /2:46 PM /3:16 PM
--- NOTE | 2017-05-10 15:40 | MR ---
cc: MARGARITO BEST M.D. DATE: 05/10/2017 PROCEDURE PERFORMED Cardioversion. INDICATION Mrs. Sánchez is a 87-year-old female with atrial fibrillation, to undergo cardioversion. The risks, the nature and the benefit of the procedure are clearly stated to her. The risks include cardiac arrest, need for endotracheal intubation and even . The patient understood and agreed to proceed. PROCEDURE After written informed consent was obtained, the patient was brought to the DOC unit where she was evaluated by anesthesiologist. Once sedation was verified, anterolateral pad were placed. Subsequently a 200 sync biphasic joule was delivered that converted the patient into sinus rhythm. No incident report. CONCLUSION Successful cardioversion. COMMENT AND RECOMMENDATION The patient is going to be transferred to the recovery room. Will be observed, if stable can be discharged home in the morning. Margarito Best MD HS/TLL /2:49 PM /3:25 PM
[2017-05-11] VITALS (15 sets, daily range): BP systolic 128–158; BP diastolic 62–79; PULSE 52–72; RESP 16–18; TEMP 97.5–98.1; O2SAT 93–100
[2017-05-11 05:53] LABS: AUTOMATED NEUTROPHIL # 2.9 TH/MM3 (1.8-7.7); BASOPHIL % 0.8 % (0.0-2.0); EOSINOPHIL # 0.2 TH/MM3 (0-0.4); EOSINOPHIL % 3.3 % (0.0-4.0); HEMATOCRIT 34.8 % (35.0-46.0); HEMOGLOBIN 12.1 GM/DL (11.6-15.3); LYMPH % 20.3 % (9.0-44.0); MEAN CELL VOLUME 98.3 FL (80.0-100.0); MEAN CORPUSCULAR HEMOGLOBIN 34.1 PG (27.0-34.0); MEAN CORPUSCULAR HGB CONC 34.7 % (32.0-36.0); MEAN PLATELET VOLUME 7.9 FL (7.0-11.0); MONO % 15.1 % (0.0-8.0); MONOCYTE # 0.7 TH/MM3 (0-0.9); NEUT % 60.5 % (16.0-70.0); PLATELET COUNT 218 TH/MM3 (150-450); RED BLOOD COUNT 3.54 MIL/MM3 (4.00-5.30); RED CELL DISTRIBUTION WIDTH 13.4 % (11.6-17.2); WHITE BLOOD COUNT 4.8 TH/MM3 (4.0-11.0)
[2017-05-11 06:13] LABS: ALT (GPT) 30 U/L (10-53); AST (GOT) 18 U/L (15-37); BICARBONATE 24.1 MEQ/L (21.0-32.0); BLOOD UREA NITROGEN 20 MG/DL (7-18); CALCIUM 8.1 MG/DL (8.5-10.1); CHLORIDE 104 MEQ/L (98-107); CREATININE 0.62 MG/DL (0.50-1.00); GLOMERULAR FILTRATION RATE 91 ML/MIN (>89); GLUCOSE,RANDOM 88 MG/DL (74-106); SODIUM (NA) 135 MEQ/L (136-145)
[2017-05-11 06:16] LABS: ALKALINE PHOSPHATASE 84 U/L (45-117); TOTAL BILIRUBIN ADULT 0.8 MG/DL (0.2-1.0); TOTAL PROTEIN 6.5 GM/DL (6.4-8.2)
--- NOTE | 2017-05-11 06:22 | EKG ---
Date Performed: 05/09/2017 Time Performed: 12:13:52 PTAGE: 87 years EKG: UNCERTAIN IRREGULAR RHYTHM MARKED LEFT AXIS DEVIATION NONSPECIFIC INTRAVENTRICULAR CONDUCTI ON DELAY THE PATIENT IS IN BIGEMINY AND THE UNDERLYING ATRIAL RHYTHM CANNOT BE DETERMINED THE BIGGEMI [place] IS NEW BUT THE PATIENT MAY NO LONGER BE IN ATRIAL FIBRILLATION. A RHYTHM STRIP IS ADVISED FOR MORE SPECIFIC INTERPRETATION UNDERLYING ATRIAL FIBRILLATION IS SUSPECTED BUT CANNOT BE CONFIRMED. THE FREQUENT PVCs ARE A NEW FINDING. ABNORMAL ECG PREVIOUS TRACING : 10/10/2016 15.00 DOCTOR: Marilynn Vázquez Interpretating Date/Time 05/11/2017 06:22:30
[2017-05-11] MEDS: ESCITALOPRAM OXALATE 10 MG TAB PO SCH (08:44)
[2017-05-11] MEDS: DILTIAZEM-CD 120 MG CAP ER PO SCH (08:44)
[2017-05-11] MEDS: APIXABAN 2.5 MG TABLET PO SCH (08:44)
[2017-05-11] MEDS: SODIUM CHLORIDE 0.9% FLUSH 10 ML FLUSH IV FLUSH SCH (08:44)
--- NOTE | 2017-05-11 10:32 | HHI.DS ---
Discharge Summary Admission Date May 09, 2017 at 17:04 Discharge Date: May 11, 2017 Admitting Diagnosis dysrhythmia, tachyarrhythmia, nonsustained V. tach (1) Tachyarrhythmia ICD Code: R00.0 - Tachyarrhythmia Diagnosis: Principal Status: Chronic (2) Dysrhythmia, cardiac ICD Code: I49.9 - Cardiac arrhythmia, unspecified Diagnosis: Principal Status: Acute (3) A-fib ICD Code: I48.91 - A-fib Diagnosis: Principal Status: Chronic Procedures Cardioversion Brief History - From Admission Patient is an 87-year-old female with primary medical history of atrial fibrillation with RVR on Eliquis, depression, HTN, history of SVTs, basal cell carcinoma came into the hospital as advised by her heel shaper Dr. Blanco after seeing her in the office today. Patient states that she was at the heel shaper office this morning and he did an EKG on her states that the heel shaper think that her EKG is not looking good and was abnormal and was advised to go to ED and she will be admitted. Patient states that Dr. BAKER plans to "shock me, tomorrow." Patient complains of shortness of breath on exertion. Patient denies any chest pain, palpitations, headaches, dizziness. Denies any fevers, chills, nausea, vomiting, diarrhea. Denies dysuria CBC/BMP: 05/11/17 0350 05/11/17 0350 Significant Findings Laboratory Tests Test 05/09/17 12:19 05/10/17 03:13 05/11/17 03:50 Monocytes (%) (Auto) 12.2 % (0.0-8.0) 15.1 % (0.0-8.0) Random Glucose 117 MG/DL (74-106) Alkaline Phosphatase 126 U/L (45-117) Aspartate Amino Transf (AST/SGOT) 50 U/L (15-37) Total Bilirubin 1.2 MG/DL (0.2-1.0) Sodium Level 132 MEQ/L (136-145) 135 MEQ/L (136-145) Estimat Glomerular Filtration Rate 78 ML/MIN (>89) Troponin I LESS THAN 0.02 NG/ML Red Blood Count 3.81 MIL/MM3 (4.00-5.30) 3.54 MIL/MM3 (4.00-5.30) Neutrophils % (Manual) 74 % (16-70) Total Protein 6.2 GM/DL (6.4-8.2) Albumin 3.0 GM/DL (3.4-5.0) 3.0 GM/DL (3.4-5.0) Calcium Level 8.3 MG/DL (8.5-10.1) 8.1 MG/DL (8.5-10.1) Hematocrit 34.8 % (35.0-46.0) Mean Corpuscular Hemoglobin 34.1 PG (27.0-34.0) Blood Urea Nitrogen 20 MG/DL (7-18) Hospital Course Mrs. Sánchez is an 87 year old female. She was admitted secondary to A-fib RVR. Treatments had been in place to aid in prevention of A-fib and RVR. A cardioversion was performed and has been successful thus far. Medically stable today and medically cleared for discharge to home today. Pt Condition on Discharge: Stable Discharge Disposition: Discharge Home Discharge Time: <= 30 minutes Discharge Instructions DIET: Follow Instructions for: Heart Healthy Diet Activities you can perform: Regular-No Restrictions Follow up Referrals: Cardiology - 2 Weeks with Noe Blanco MD PCP Follow-up - 2 Weeks Continued Medications: Apixaban (Eliquis) 2.5 Mg Tab 2.5 MG PO BID for Blood Clot Prevention, TAB 0 Refills Diltiazem CD 24 HR (Cardizem CD 24 HR) 120 Mg Caper 120 MG PO DAILY, #30 CAP 0 Refills Escitalopram (Lexapro) 10 Mg Tab 10 MG PO DAILY, #30 TAB 0 Refills Jb Morfin MD May 11, 2017 10:32
--- NOTE | 2017-05-12 16:12 | EKG ---
Date Performed: 05/10/2017 Time Performed: 13:21:00 PTAGE: 87 years EKG: Atrial fibrillation with rapid ventricular response with frequent multifocal PVCs. Left axi s deviation Extensive ST-T changes are nonspecific Since previous tracing, no significant change note d Abnormal ECG PREVIOUS TRACING : 05/09/2017 12.13 DOCTOR: Jaren Holliday Interpretating Date/Time 05/12/2017 16:11:11
--- NOTE | 2017-05-12 16:13 | EKG ---
Date Performed: 05/10/2017 Time Performed: 14:23:18 PTAGE: 87 years EKG: Sinus bradycardia with borderline 1st degree A-V block. Prolonged QT interval Left axis dev iation Nonspecific ST-T abnormality Compared to previous tracing, atrial fibrillation resolved Abnorm al ECG PREVIOUS TRACING : 05/10/2017 13.21 DOCTOR: Jaren Holliday Interpretating Date/Time 05/12/2017 16:12:08
== END 2017-05-11 16:00 | disposition home or self-care (01) | DRG 310 ==
LOC: NEPC 11:47 → NEDA 17:04 → HCPC 18:05
PROVIDERS: ADMIT Hospitalist; ATTEND Hospitalist
PROC: 5A2204Z Restoration of Cardiac Rhythm, Single (ICD-10-PCS; principal; 2017-05-10)
DX: I48.91 Unspecified atrial fibrillation (principal); I44.7 Left bundle-branch block, unspecified; I10 Essential (primary) hypertension; Z79.02 Long term (current) use of antithrombotics/antiplatelets; F32.9 Major depressive disorder, single episode, unspecified; Z85.828 Personal history of other malignant neoplasm of skin; Z97.4 Presence of external hearing-aid; H91.90 Unspecified hearing loss, unspecified ear; Z86.711 Personal history of pulmonary embolism; Z87.891 Personal history of nicotine dependence
CPT/HCPCS: 71046; 80053; 82550; 83735; 84484; 85007; 85025; 85027; 85610; 85730; 92960; 93005

== ENCOUNTER 2018-04-04 14:18 | Inpatient (IN) ==
--- NOTE | 2018-04-04 14:59 | ED ---
HPI General Chief Complaint: Chest Pain Stated Complaint: Cardiac Time Seen by Provider: 04/04/18 14:30 Source: patient Mode of arrival: ambulatory Limitations: no limitations History of Present Illness HPI narrative: Ms Sánchez is an 87 year old female who presents to the ED due to a HR of over 130 for approximately 1 week. She states that she takes her BP and HR at home every day and finally called Dr. Disla office today regarding the week of tachycardia. The nurse in his office told her to go to the ED for evaluation. The patient states that she feels normal and has no complaints. Upon further questioning she admits to slight SOB with exertion but denies SOB at rest. She denies chest pain, palpitations, headache, syncope, nausea, vomiting, or dizziness. The patient's PMH is significant for AFib and C.Diff in 2013. She has had 2 ablations for the AFib in 2013, and 1 cardioversion 6 months ago. The patient has flown recently, to [facility], and to [facility], in the last month. The patient denies tobacco, alcohol, or drug use. Patient denies any symptoms at this time. Per patient she did not want to come here but the nurse recommended that she comes here. Related Data Home Medications Medication Instructions Recorded Confirmed apixaban [Eliquis] 2.5 mg PO BID 04/04/18 04/04/18 diltiazem HCl [Cardizem] 120 mg PO DAILY 04/04/18 04/04/18 dorzolamide 1 drp OPHTHALMIC (EYE) TID 04/04/18 04/04/18 escitalopram oxalate [Lexapro] 10 mg PO DAILY 04/04/18 04/04/18 latanoprost 1 drp OPHTHALMIC (EYE) QPM 04/04/18 04/04/18 Allergies Allergy/AdvReac Type Severity Reaction Status Date / Time quinine Allergy Intermediate itching Unverified 05/09/17 17:50 Review of Systems ROS: all other systems reviewed are negative [facility] Medical History Medical History History of cardioversion (Acute) Afib (Chronic) Cataract (Chronic) Glaucoma (Chronic) Surgical History Surgical History Hx of inguinal hernia surgery (Acute) S/P ablation of atrial fibrillation (Chronic) Social History Social History Substance History: No History of Abuse Smoking Status: Never smoker How Often Do You Have a Drink Containing Alcohol: 2 to 4 times a month Recent Travel in [place] within the Last 8 Weeks: No Recent Out of Country Travel within the Last 8 Weeks: No Immunization History Tetanus Immunization: Unsure Exam Narrative Exam Narrative: GENERAL: The patient is a well developed well nourished female in [facility]. SKIN: Warm and dry. HEAD: Atraumatic. Normocephalic. EYES: Pupils equal and round and reactive to light. No scleral icterus. No injection or drainage. ENT: No nasal bleeding or discharge. Mucous membranes pink and moist. NECK: Trachea midline. No JVD. CARDIOVASCULAR: Tachycardia and atrial flutter. No murmurs rubs or gallops. RESPIRATORY: No accessory muscle use. Clear to auscultation. Breath sounds equal bilaterally. GASTROINTESTINAL: Abdomen soft, non-tender, nondistended. Hepatic and splenic margins not palpable. MUSCULOSKELETAL: Extremities without clubbing, cyanosis, or edema. No obvious deformities. Full range of motion of the upper and lower extremities bilaterally. 2+ pulses bilaterally. NEUROLOGICAL: Awake and alert. No obvious cranial nerve deficits. Motor grossly within normal limits. Five out of 5 muscle strength in the arms and legs. Normal speech. PSYCHIATRIC: Appropriate mood and affect; insight and judgment normal. Course Initial Documented Vital Signs Temperature 97.6 F 04/04/18 14:21 Pulse Rate 130 H 04/04/18 14:21 Respiratory Rate 16 04/04/18 14:21 Blood Pressure 157/106 H 04/04/18 14:21 Pulse Oximetry 97 04/04/18 14:21 Last Documented Vital Signs Temperature 97.6 F 04/04/18 14:21 Pulse Rate 129 H 04/04/18 17:06 Respiratory Rate 18 04/04/18 17:06 Blood Pressure 143/92 H 04/04/18 17:06 Pulse Oximetry 98 04/04/18 17:06 Medical Decision Making MDM Narrative Medical decision making narrative: 87-year-old female that presents to the ED for evaluation of tachycardia. Patient was properly examined and was found to have signs and symptoms consistent appears to be atrial flutter. Patient was given Cardizem IV. Labs and imaging ordered. Case will be discussed with Dr. Walker as well as my attending pending work up results. labs and imaging positive for atrial flutter in RVR. Cardizem improve HR but HR creeping up and put on drip. Unable to speak with patient's telesales supervisor after three attempts. At this time will admit to medicine for further evaluation per my attending Dr Elizabeth. Admitted to Dr Hightower who agrees with plan. Medical Screen Exam Complete: Yes Emergency Medical Condition: Yes Differential Diagnosis Differential Diagnosis: Atrial flutter versus A. fib versus arrhythmia versus atypical chest pain Medical Records Medical records reviewed: Yes I reviewed the patient's medical records. Lab Data Lab results reviewed: Yes I reviewed the patient's lab results. Result diagrams: 04/04/18 14:52 04/04/18 14:52 Lab Results 04/04/18 04/04/18 04/04/18 Range/Units 14:52 14:52 14:52 WBC 5.4 (4.0-11.0) th/mm3 RBC 3.65 L (4.00-5.30) mil/mm3 Hgb 12.6 (11.6-15.3) gm/dL Hct 36.3 (35.0-46.0) % MCV 99.3 (80.0-100.0) fL MCH 34.5 H (27.0-34.0) pg MCHC 34.8 (32.0-36.0) % RDW 13.4 (11.6-17.2) % Plt Count 214 (150-450) th/mm3 MPV 7.9 (7.0-11.0) fL Neut % (Auto) 65.6 (16.0-70.0) % Lymph % (Auto) 18.1 (9.0-44.0) % Corson % (Auto) 12.5 H (0.0-8.0) % Eos % (Auto) 2.8 (0.0-4.0) % Baso % (Auto) 1.0 (0.0-2.0) % Neut # (Auto) 3.6 (1.8-7.7) th/mm3 Lymph # (Auto) 1.0 (1.0-4.8) th/mm3 Corson # (Auto) 0.7 (0.0-0.9) th/mm3 Eos # (Auto) 0.2 (0.0-0.4) th/mm3 Baso # (Auto) 0.1 (0.0-0.2) th/mm3 WBC Differential . Differential Comment Auto diff final PT 11.4 (9.8-11.6) sec INR 1.1 Ratio APTT 30.2 (23.4-31.7) sec Sodium 132 L (136-145) meq/L Potassium 4.3 (3.5-5.1) meq/L Chloride 103 (98-107) meq/L Carbon Dioxide 24.3 (21.0-32.0) meq/L Anion Gap 5 (5-15) meq/L BUN 17 (7-18) mg/dL Creatinine 0.87 (0.50-1.00) mg/dL Estimated GFR 61 L (>89) mL/min Random Glucose 97 (74-106) mg/dL Calcium 8.3 L (8.5-10.1) mg/dL Total Bilirubin 0.6 (0.2-1.0) mg/dL AST 29 (15-37) U/L ALT 31 (10-53) U/L Alkaline Phosphatase 93 (45-117) U/L Total Creatine Kinase 96 (26-192) U/L Troponin I Less than 0.02 L (0.02-0.05) ng/mL B-Natriuretic Peptide (0-100) pg/mL Total Protein 7.2 (6.4-8.2) g/dL Albumin 3.5 (3.4-5.0) g/dL 04/04/18 Range/Units 14:52 WBC (4.0-11.0) th/mm3 RBC (4.00-5.30) mil/mm3 Hgb (11.6-15.3) gm/dL Hct (35.0-46.0) % MCV (80.0-100.0) fL MCH (27.0-34.0) pg MCHC (32.0-36.0) % RDW (11.6-17.2) % Plt Count (150-450) th/mm3 MPV (7.0-11.0) fL Neut % (Auto) (16.0-70.0) % Lymph % (Auto) (9.0-44.0) % Corson % (Auto) (0.0-8.0) % Eos % (Auto) (0.0-4.0) % Baso % (Auto) (0.0-2.0) % Neut # (Auto) (1.8-7.7) th/mm3 Lymph # (Auto) (1.0-4.8) th/mm3 Corson # (Auto) (0.0-0.9) th/mm3 Eos # (Auto) (0.0-0.4) th/mm3 Baso # (Auto) (0.0-0.2) th/mm3 WBC Differential Differential Comment PT (9.8-11.6) sec INR Ratio APTT (23.4-31.7) sec Sodium (136-145) meq/L Potassium (3.5-5.1) meq/L Chloride (98-107) meq/L Carbon Dioxide (21.0-32.0) meq/L Anion Gap (5-15) meq/L BUN (7-18) mg/dL Creatinine (0.50-1.00) mg/dL Estimated GFR (>89) mL/min Random Glucose (74-106) mg/dL Calcium (8.5-10.1) mg/dL Total Bilirubin (0.2-1.0) mg/dL AST (15-37) U/L ALT (10-53) U/L Alkaline Phosphatase (45-117) U/L Total Creatine Kinase (26-192) U/L Troponin I (0.02-0.05) ng/mL B-Natriuretic Peptide 243 H (0-100) pg/mL Total Protein (6.4-8.2) g/dL Albumin (3.4-5.0) g/dL Imaging Data Attestation: I personally reviewed and interpreted this imaging study as follows : Radiologist's impression: Chest X-Ray 04/04/18 14:34 CONCLUSION: Increased interstitial markings likely related to underlying interstitial disease or pulmonary venous hypertension. Venous Doppler Study 04/04/18 14:59 CONCLUSION: 1. No sonographic evidence for lower extremity DVT. ECG Data Attestation: I personally reviewed and interpreted this ECG as follows: Interpretation: EKG shows atrial flutter in RVR with ventricular rate in the 129s. No ischemia read by me and attending. Discharge Plan Discharge Order Discharge Orders: ED Use Only Admit Order (Routine); Ordered 04/04/18 Ordered By: Maximo Sparks Physicians Team ED Provider: Edgard Elizabeth ED Midlevel Provider: Maximo Sparks Primary Care Provider: NON STAFF,PROVIDER Rxs /Orders / Referrals /Forms Prescriptions: No Action latanoprost 0.005 % Drops 1 drp OPHTHALMIC (EYE) QPM RF: 0 diltiazem HCl [Cardizem] 120 mg Tablet 120 mg PO DAILY RF: 0 dorzolamide 2 % Drops 1 drp OPHTHALMIC (EYE) TID RF: 0 escitalopram oxalate [Lexapro] 10 mg Tablet 10 mg PO DAILY RF: 0 apixaban [Eliquis] 2.5 mg Tablet 2.5 mg PO BID RF: 0 Discharge Interventions Interventions: Vital Signs Last Done: 04/04/18 14:21 Status ED Status: Admitted Patient
[2018-04-04 15:11] LABS: Baso # (Auto) 0.1 th/mm3 (0.0-0.2); Eos # (Auto) 0.2 th/mm3 (0.0-0.4); Eos % (Auto) 2.8 % (0.0-4.0); Hematocrit 36.3 % (35.0-46.0); Hemoglobin 12.6 gm/dL (11.6-15.3); Lymph % (Auto) 18.1 % (9.0-44.0); Mean Corpuscular HGB Conc 34.8 % (32.0-36.0); Mean Corpuscular Hemoglobin 34.5 pg (27.0-34.0); Mean Corpuscular Volume 99.3 fL (80.0-100.0); Mean Platelet Volume 7.9 fL (7.0-11.0); Mono # (Auto) 0.7 th/mm3 (0.0-0.9); Mono % (Auto) 12.5 % (0.0-8.0); Neut # (Auto) 3.6 th/mm3 (1.8-7.7); Neut % (Auto) 65.6 % (16.0-70.0); Platelet Count 214 th/mm3 (150-450); Red Blood Count 3.65 mil/mm3 (4.00-5.30); Red Cell Distribution Width 13.4 % (11.6-17.2); White Blood Count 5.4 th/mm3 (4.0-11.0)
[2018-04-04 15:18] LABS: Activated Partial Thrombo Time 30.2 sec (23.4-31.7); INR 1.1 Ratio; Prothrombin Time 11.4 sec (9.8-11.6)
--- NOTE | 2018-04-04 15:23 | XR ---
EXAM DATE: 04/04/2018 2:56 PM EST AGE/SEX: 87 years / Female INDICATIONS: Chest pain. CLINICAL DATA: This is the patient's initial encounter. Patient reports that signs and symptoms have been present for 1 day and indicates a pain score of 2/10. MEDICAL/SURGICAL HISTORY: Hypertension. None. Cardiac ablasion. COMPARISON: [facility] [place], CHEST PA & LAT, 05/09/2017. . FINDINGS: The heart size is normal. The aorta is widened. The lungs demonstrate diffuse mild increased intersti tial markings. An alveolar density is not seen. No effusion is seen. CONCLUSION: Increased interstitial markings likely related to underlying interstitial disease or pulmonary venous hypertension. Electronically signed by: Norris Greco MD 04/04/2018 3:22 PM EST
[2018-04-04 15:43] LABS: Albumin 3.5 g/dL (3.4-5.0); Anion Gap 5 meq/L (5-15); Aspartate Aminotransferase 29 U/L (15-37); Blood Urea Nitrogen 17 mg/dL (7-18); Calcium 8.3 mg/dL (8.5-10.1); Carbon Dioxide 24.3 meq/L (21.0-32.0); Chloride 103 meq/L (98-107); Glomerular Filtration Rate 61 mL/min (>89); Glucose,Random 97 mg/dL (74-106); Potassium 4.3 meq/L (3.5-5.1); Sodium 132 meq/L (136-145)
[2018-04-04 15:45] LABS: Alanine Aminotransferase 31 U/L (10-53)
[2018-04-04 15:48] LABS: Alkaline Phosphatase 93 U/L (45-117); Total Protein 7.2 g/dL (6.4-8.2)
[2018-04-04 15:50] LABS: Creatine Kinase 96 U/L (26-192)
--- NOTE | 2018-04-04 16:07 | US ---
EXAM DATE: 04/04/2018 3:32 PM EST AGE/SEX: 87 years / Female INDICATIONS: Leg swelling. CLINICAL DATA: This is the patient's initial encounter. Patient reports that signs and symptoms have been present for 1 day and indicates a pain score of 0/10. MEDICAL/SURGICAL HISTORY: . Afib. Chest pain. . Cardioversion. Atrial ablation. Hernia repair. COMPARISON: No prior exams available for comparison. TECHNIQUE: Venous ultrasound of both lower extremities was performed from the inguinal ligament to t he proximal calf. Real-time, color Doppler and spectral tracing, compression and augmentation techni ques were used. FINDINGS: Right Leg: Normal compression of the deep venous system from the inguinal region to the proximal erich f. No echogenic clot is seen. Normal response of the venous system to augmentation and respiration. Left Leg: Normal compression of the deep venous system from the inguinal region to the proximal calf . No echogenic clot is seen. Normal response of the venous system to augmentation and respiration. Other: None. CONCLUSION: 1. No sonographic evidence for lower extremity DVT. Electronically signed by: Donal Mcclure MD 04/04/2018 4:05 PM EST
[2018-04-04] MEDS ORDERED: Bisacodyl 10 MG Supp RECTAL PRN (16:52)
[2018-04-04] MEDS ORDERED: Acetaminophen 325 MG Tablet PO PRN (16:52)
--- NOTE | 2018-04-04 17:26 | P.HPIM ---
History of Present Illness Primary Care Physician: PROVIDER NON STAFF Chief Complaint: Fast heart rate, my nuisance animal damage control agent told me to come here. History of Present Illness: 87-year-old white female with a previous history of atrial fibrillation in which she was cardioverted by Dr. Blanco 6 months ago presents emergency room due to 1 week history of persistent elevated heart rate of greater than 130. She states that she is has been taking her blood pressure during the past week and noted consistency of her elevated heart rate. She contact her nuisance animal damage control agent who sent her to emergency room for further evaluation. She denies any associated palpitations nor any chest pain. She does complain of some dyspnea with exertion or when she is not in the air conditioned room. She denies symptoms of orthopnea or PND. She has chronic bilateral lower extremity swelling which is unchanged. She denies any coughing, nor any symptoms of chills or fever. While she was in the emergency room, she did not respond to IV Cardizem and Cardizem drip was started initiated. She stated she had 2 ablations 4 years ago for her atrial fibrillation. She is currently still taking her Cardizem and Eliquis. She states that she currently lives alone and ambulates independently. Review of Systems Constitutional: Reports as per HPI and Denies headache(s) Eyes: Denies blurry vision, Denies change in vision and Denies eye pain Ears, Nose, Mouth, and Throat: Denies abnormal hearing, Denies headache(s), Denies mouth pain, Denies nasal congestion, Denies neck pain and Denies sore throat Cardiovascular: Denies chest pain, Denies diaphoresis, Reports pedal edema, Reports irregular heart rhythm, Reports leg edema, Denies palpitations, Reports dyspnea on exertion, Denies orthopnea and Denies paroxysmal nocturnal dyspnea Respiratory: Denies cough, Denies pain with cough, Reports dyspnea on exertion and Denies wheezing Gastrointestinal: Denies abdominal pain, Denies constipation, Denies loose stools, Denies nausea and Denies vomiting Musculoskeletal: Denies back pain, Denies myalgias, Denies arthralgias, Denies neck pain and Denies numbness Skin/Breast: Denies new lesions and Denies rash Neurologic: Denies abnormal hearing, Denies headache(s), Denies focal weakness, Denies memory loss and Denies numbness Psychiatric: Denies anxiety, Denies depression and Denies memory loss Endocrine: Denies cold intolerance, Denies heat intolerance and Denies palpitations Hematologic/Lymphatic: Denies easy bleeding and Denies easy bruising [facility] Medical History Medical History History of cardioversion (Acute) Afib (Chronic) Cataract (Chronic) Glaucoma (Chronic) Surgical History Surgical History Hx of inguinal hernia surgery (Acute) S/P ablation of atrial fibrillation (Chronic) Social History Social History Substance History: No History of Abuse Smoking Status: Never smoker How Often Do You Have a Drink Containing Alcohol: 2 to 4 times a month Recent Travel in [place] within the Last 8 Weeks: No Recent Out of Country Travel within the Last 8 Weeks: No Immunization History Tetanus Immunization: Unsure Medications and Allergies Allergies Allergy/AdvReac Type Severity Reaction Status Date / Time quinine Allergy Intermediate itching Unverified 05/09/17 17:50 Home Medications Medication Instructions Recorded Confirmed Type apixaban [Eliquis] 2.5 mg PO BID 04/04/18 04/04/18 History diltiazem HCl [Cardizem] 120 mg PO DAILY 04/04/18 04/04/18 History dorzolamide 1 drp OPHTHALMIC (EYE) TID 04/04/18 04/04/18 History escitalopram oxalate [Lexapro] 10 mg PO DAILY 04/04/18 04/04/18 History latanoprost 1 drp OPHTHALMIC (EYE) QPM 04/04/18 04/04/18 History Active Medications: Active Medications Acetaminophen (Tylenol) 650 mg PO Q4H PRN PRN Reason: Temp > 100.4 Al Hydroxide/Mg Hydroxide (Milk Of Magnesia Liq) 30 ml PO Q12H PRN PRN Reason: Mild Constipation Bisacodyl (Dulcolax Supp) 10 mg RECTAL DAILY PRN PRN Reason: SEVERE CONSITIPATION Diltiazem HCl 125 mg/ Sodium (Chloride) 125 mls @ 5 mls/hr IV.CONT TITRATE PRN ; Protocol PRN Reason: Per Protocol Lactulose (Lactulose Liq) 30 ml PO DAILY PRN PRN Reason: SEVERE CONSITIPATION Ondansetron HCl (Zofran Inj) 4 mg IV.PUSH Q6H PRN PRN Reason: NAUSEA OR VOMITING Sennosides (Senokot) 17.2 mg PO Q12H PRN PRN Reason: Moderate Constipation Sodium Chloride (Ns Flush) 2 ml IV.FLUSH UNSCH PRN PRN Reason: FLUSH AFTER USING IV ACCESS Last Admin: 04/04/18 15:19 Dose: 2 ml Sodium Chloride (Ns Flush) 2 ml IV.FLUSH BID SHERLY Sodium Chloride (Ns Flush) 2 ml IV.FLUSH PRN PRN PRN Reason: FLUSH AFTER USING IV ACCESS Physical Exam Vital signs: Last Vital Signs Temp 97.6 F 04/04/18 14:21 Pulse 129 H 04/04/18 17:06 Resp 18 04/04/18 17:06 BP 143/92 H 04/04/18 17:06 Pulse Ox 98 04/04/18 17:06 Intake & Output 04/02/18 04/03/18 04/04/18 04/05/18 06:59 06:59 06:59 06:59 Weight 63.049 kg Results Labs CBC & Chem 7: 04/04/18 14:52 04/04/18 14:52 Imaging Impressions Chest X-Ray 04/04/18 14:34 CONCLUSION: Increased interstitial markings likely related to underlying interstitial disease or pulmonary venous hypertension. Venous Doppler Study 04/04/18 14:59 CONCLUSION: 1. No sonographic evidence for lower extremity DVT. ECG Attestation: I personally reviewed and interpreted this ECG as follows: Prior ECG tracings: not available for review Interpretation: Atrial flutter with rapid ventricular rate of 130 Caprini VTE Risk Assessment Caprini VTE Risk Assessment: Moderate/High Risk (score >= 2) Caprini Risk Assessment Model: Point Value = 1 Point Value = 2 Point Value = 3 Point Value = 5 Age 41-60 Minor surgery BMI > 25 kg/m2 Swollen legs Varicose veins or History of unexplained or recurrent spontaneous Oral contraceptives or hormone replacement Sepsis (< 1 month) Serious lung disease, including pneumonia (< 1 month) Abnormal pulmonary function Acute myocardial infarction Congestive heart failure (< 1 month) History of inflammatory bowel disease Medical patient at bed rest Age 61-74 Arthroscopic surgery Major open surgery (> 45 min) Laparoscopic surgery (> 45 min) Malignancy Confined to bed (> 72 hours) Immobilizing plaster cast Central venous access Age >= 75 History of VTE Family history of VTE Factor V Leiden Prothrombin [id number] Lupus anticoagulant Anticardiolipin antibodies Elevated serum homocysteine Heparin-induced thrombocytopenia Other congenital or acquired thrombophilia Stroke (< 1 month) Elective arthroplasty Hip, pelvis, or leg fracture Acute spinal cord injury (< 1 month) Prophylaxis Regimen: Total Risk Factor Score Risk Level Prophylaxis Regimen 0-1 Low Early ambulation 2 Moderate Order ONE of the following: *Sequential Compression Device (SCD) *Heparin 5000 units SQ BID 3-4 Higher Order ONE of the following medications: *Heparin 5000 units SQ TID *Enoxaparin/Lovenox 40 mg SQ daily (WT < 150 kg, CrCl > 30 mL/min) *Enoxaparin/Lovenox 30 mg SQ daily (WT < 150 kg, CrCl > 10-29 mL/min) *Enoxaparin/Lovenox 30 mg SQ BID (WT < 150 kg, CrCl > 30 mL/min) AND/OR *Sequential Compression Device (SCD) 5 or more Highest Order ONE of the following medications: *Heparin 5000 units SQ TID (Preferred with Epidurals) *Enoxaparin/Lovenox 40 mg SQ daily (WT < 150 kg, CrCl > 30 mL/min) *Enoxaparin/Lovenox 30 mg SQ daily (WT < 150 kg, CrCl > 10-29 mL/min) *Enoxaparin/Lovenox 30 mg SQ BID (WT < 150 kg, CrCl > 30 mL/min) AND *Sequential Compression Device (SCD) Assessment and Plan Plan 87-year-old white female with a history of A. fib status post cardioversion 6 months ago sent to the emergency room by her nuisance animal damage control agent due to recurrent atrial fib with RVR. A flutter with rapid ventricular rate-patient did not respond to IV Cardizem and initiated Cardizem drip, continue with blood thinner Eliquis, consult her nuisance animal damage control agent Dr. Blanco for further recommendations. History of glaucomaresume home medication Uncontrolled hypertensionmonitor while on Cardizem drip, IV Vasotec as needed. DVT prophylaxisEliquis
[2018-04-04] MEDS: dilTIAZem Inj 125 MG in Sodium Chlor 0.9% Inj 100 ML IV.CONT PRN (17:45)
[2018-04-04] MEDS: Dorzolamide 2% Opth Drops 10 ML Bottle EACH EYE SCH (21:56)
[2018-04-04] MEDS: Latanoprost 0.005% Opth Drops 2.5 ML Bottle EACH EYE SCH (21:56)
[2018-04-05] MEDS: dilTIAZem Inj 125 MG in Sodium Chlor 0.9% Inj 100 ML IV.CONT PRN ×2 (05:08→17:47)
[2018-04-05] MEDS: Escitalopram 10 MG Tablet PO SCH (08:36)
[2018-04-05] MEDS: Dorzolamide 2% Opth Drops 10 ML Bottle EACH EYE SCH ×3 (08:37→17:49)
[2018-04-05] MEDS: dilTIAZem 30 MG Tablet PO SCH ×3 (12:34→20:40)
--- NOTE | 2018-04-05 15:21 | P.PNIM ---
Subjective Interval history: no complaints at present. Physical Exam Vital signs: Last Vital Signs Temp 97.2 F L 04/05/18 12:00 Pulse 64 04/05/18 12:00 Resp 17 04/05/18 12:00 BP 146/89 H 04/05/18 12:00 Pulse Ox 96 04/05/18 12:00 Intake & Output 04/03/18 04/04/18 04/05/18 04/06/18 06:59 06:59 06:59 06:59 Intake Total 485 / 485 Output Total 1350 / 1350 Balance -865 / -865 Weight 63.6 kg Narrative: GENERAL: elderly lady, in no distress. HEENT:not pale,anicteric CARDIOVASCULAR: irregularly irregular rhythm, no gallops or rubs. RESPIRATORY: Clear to auscultation. Breath sounds equal bilaterally. No wheezes , rales, or rhonchi. GASTROINTESTINAL: Abdomen soft, non-tender, nondistended. Normal active bowel sounds MUSCULOSKELETAL: Extremities without clubbing, cyanosis, or edema. NEURO: Alert & Oriented x4 to person, place, time, situation. Moves all ext x4 Results Labs CBC & Chem 7: 04/04/18 14:52 04/04/18 14:52 Imaging Imaging: Impressions Chest X-Ray 04/04/18 14:34 CONCLUSION: Increased interstitial markings likely related to underlying interstitial disease or pulmonary venous hypertension. Venous Doppler Study 04/04/18 14:59 CONCLUSION: 1. No sonographic evidence for lower extremity DVT. Assessment and Plan Plan 87-year-old white female with a history of A. fib status post cardioversion 6 months ago sent to the emergency room by her outside plant cable engineer due to recurrent atrial fib with RVR. A fib with rapid ventricular rate-patient did not respond to IV Cardizem and initiated Cardizem drip. Heart rate fluctuating with episodes of tachycardia. Continue Cardizem drip for now, start PO Cardizem and titrate to rate, monitor rate. anticoagulation with Eliquis. Her outside plant cable engineer Dr. Blanco was consulted on admission-await recs. History of glaucomacontinue home medication Uncontrolled hypertensionmonitor while on Cardizem drip, IV Vasotec as needed. DVT prophylaxisEliquis Progress Note: Quality VTE Deep Vein Thrombosis/Pulmonary Embolism Present on Admission: No
[2018-04-05] MEDS: Latanoprost 0.005% Opth Drops 2.5 ML Bottle EACH EYE SCH (20:41)
[2018-04-06] MEDS: Escitalopram 10 MG Tablet PO SCH (08:45)
[2018-04-06] MEDS: dilTIAZem 30 MG Tablet PO SCH (08:45)
[2018-04-06] MEDS: Dorzolamide 2% Opth Drops 10 ML Bottle EACH EYE SCH ×3 (08:47→18:31)
--- NOTE | 2018-04-06 12:47 | P.PNIM ---
Subjective Interval history: no new complaints. remains tachycardic Physical Exam Vital signs: Last Vital Signs Temp 97.2 F L 04/06/18 08:00 Pulse 101 H 04/06/18 08:10 Resp 16 04/06/18 08:00 BP 136/73 04/06/18 08:00 Pulse Ox 97 04/06/18 08:10 Intake & Output 04/04/18 04/05/18 04/06/18 04/07/18 06:59 06:59 06:59 06:59 Intake Total 485 / 485 450 / 450 Output Total 1350 / 1350 750 / 750 Balance -865 / -865 -300 / -300 Weight 63.6 kg 64.7 kg Narrative: GENERAL: elderly lady, in no distress. HEENT:not pale,anicteric CARDIOVASCULAR: irregularly irregular rhythm, no gallops or rubs. RESPIRATORY: Clear to auscultation. Breath sounds equal bilaterally. No wheezes , rales, or rhonchi. GASTROINTESTINAL: Abdomen soft, non-tender, nondistended. Normal active bowel sounds MUSCULOSKELETAL: Extremities without clubbing, cyanosis, or edema. NEURO: Alert & Oriented x4 to person, place, time, situation. Moves all ext x4 Results Labs CBC & Chem 7: 04/04/18 14:52 04/04/18 14:52 Assessment and Plan Plan 87-year-old white female with a history of A. fib status post cardioversion 6 months ago sent to the emergency room by her jewelry sales representative due to recurrent atrial fib with RVR. A fib with rapid ventricular rate-patient did not respond to IV Cardizem and initiated Cardizem drip. Heart rate fluctuating with episodes of tachycardia. Continue Cardizem drip for now, PO Cardizem and titrate to rate, monitor rate. anticoagulation with Eliquis. Her jewelry sales representative Dr. Blanco was consulted on admission-await recs. History of glaucomacontinue home medication Uncontrolled hypertensionmonitor while on Cardizem drip, IV Vasotec as needed. DVT prophylaxisEliquis Progress Note: Quality VTE Deep Vein Thrombosis/Pulmonary Embolism Present on Admission: No
[2018-04-06] MEDS ORDERED: dilTIAZem 60 MG Tablet PO SCH (13:00)
--- NOTE | 2018-04-06 17:58 | ECG ---
Date Performed: 04/04/2018 Time Performed: 14:38:28 PTAGE: 87 years EKG: ATRIAL FLUTTER/TACHYCARDIA WITH RAPID VENTRICULAR RESPONSE INCOMPLETE RIGHT BUNDLE BRANCH B LOCK LEFT ANTERIOR FASCICULAR BLOCK ABNORMAL ECG INTERPRETATION BASED ON A DEFAULT AGE OF 40 YEARS PREVIOUS TRACING : 05/10/2017 14.23 DOCTOR: Noe Blanco Interpretating Date/Time 04/06/2018 17:35:49
[2018-04-06 18:02] LABS: Amorphous Sediment,Urine Rare /hpf; Bacteria,Urine Rare /hpf; Bilirubin,Urine Negative (Negative); Clarity,Urine Cloudy (Clear); Color,Urine Yellow (Yellw/Straw); Glucose,Urine (UA) Negative (Negative); Leukocyte Esterase,Urine Large (Negative); Mucus,Urine Few /lpf (Occasional); Nitrite,Urine Negative (Negative); Specific Gravity,Urine 1.017 (1.002-1.035); Squamous Epithelial Cell,Urine 29 /hpf (0-5); Transitional Epi Cells,Urine 1 /hpf
[2018-04-06] MEDS: dilTIAZem Inj 125 MG in Sodium Chlor 0.9% Inj 100 ML IV.CONT PRN (19:15)
--- NOTE | 2018-04-06 20:18 | MB ---
cc: Jaren Holliday MD DATE: 04/06/2018 REASON FOR CONSULTATION: Evaluation of persistent tachyarrhythmia. HISTORY OF PRESENT ILLNESS: The patient is an 87-year-old woman who has a previous history of atrial fibrillation. She has had a previous ablation and had a cardioversion 05/10/2017. Since 03/29/2018, her heart rate has been up around 130 and has stayed there. She noticed a very slight amount of shortness of breath, but otherwise asymptomatic, no chest pain. She has chronic lower extremity edema which is no worse. She was admitted because of the tachyarrhythmia. IV Cardizem did not bring the rate down. She is on 60 mg of diltiazem every 6 hours and I have just increased it to 90 mg every 6 hours. PAST MEDICAL HISTORY: Includes AFib, hypertension, mild aortic, mitral, and tricuspid regurgitation, hyperlipidemia with refusal to take statins, history of IBS, history of previous C. difficile, history of previous right inguinal hernia. SOCIAL HISTORY: She is . She smoked a pack a day for 10 years, but quit at around age 28. MEDICATIONS: 1. Diltiazem. 2. Eliquis 2.5 mg b.i.d., but she weighs more than 60 kg, so I have increased it to 5 mg b.i.d. 3. Lexapro. The additional medicine she takes is Premarin and Timoptic, but she has not been receiving them here and I have asked her primary to order those. REVIEW OF SYSTEMS: She had a vomiting episode yesterday. She attributes it to the food she ate. She has had no other positive systems. PHYSICAL EXAMINATION GENERAL: Shows an old older white female in no acute distress, telemetry showing a regular SVT at about 130. HEENT: Unremarkable. NECK: No JVD or bruits. CHEST: Clear to auscultation. HEART: S1, S2, tachycardic. Could not appreciate a gallop. ABDOMEN: Soft, nontender. EXTREMITIES: 1+ edema. LABORATORY DATA: Hematocrit is 36.3. Troponin is negative. BNP 243. Sodium 132, creatinine 0.87. Chest x-ray shows increased interstitial markings. IMPRESSION: Persistent supraventricular tachycardia. She has been in it now since 03/29/2018, so it has been going on about 8 days. RECOMMENDATIONS: I am going to increase the diltiazem from 60 mg every six hours to 90 mg every six hours. I have placed a page to Dr. Blanco to see if he can give me further advice on how to manage her over the weekend. I am not sure if he is planning cardioversion or repeat ablation. I have increased her Eliquis to the appropriate dose. Her creatinine is normal. To have 2/3 criteria to reduce the dose she needs to be age 80 or greater, which she does have, but a weight of 60 kg or less, and she actually weighs more than 60 kg, so I have increased the Eliquis to 5 mg p.o. b.i.d. Further therapy to be determined. MD VERA Hines/eliel , 04:40 PM , 04:48 PM
[2018-04-06] MEDS: Latanoprost 0.005% Opth Drops 2.5 ML Bottle EACH EYE SCH (20:26)
[2018-04-07] MEDS: Escitalopram 10 MG Tablet PO SCH (08:09)
[2018-04-07] MEDS: Dorzolamide 2% Opth Drops 10 ML Bottle EACH EYE SCH ×3 (08:10→18:07)
--- NOTE | 2018-04-07 11:05 | P.PNCA ---
Subjective Interval history: She feels HR go up with activity. Anxious Medications and Allergies Active Medications: Active Medications Acetaminophen (Tylenol) 650 mg PO Q4H PRN PRN Reason: Temp > 100.4 Al Hydroxide/Mg Hydroxide (Milk Of Magnesia Liq) 30 ml PO Q12H PRN PRN Reason: Mild Constipation Apixaban (Eliquis) 5 mg PO BID [facility] Last Admin: 04/07/18 08:09 Dose: 5 mg Bisacodyl (Dulcolax Supp) 10 mg RECTAL DAILY PRN PRN Reason: SEVERE CONSITIPATION Diltiazem HCl (Cardizem) 90 mg PO QID [facility] Last Admin: 04/07/18 08:09 Dose: 90 mg Dorzolamide HCl (Trusopt 2% Opth Drops) 1 drop EACH EYE TID [facility] Last Admin: 04/07/18 08:10 Dose: 1 drop Enalaprilat (Vasotec Inj) 1.25 mg IV.PUSH Q6H PRN PRN Reason: SEE LABEL COMMENTS Escitalopram Oxalate (Lexapro) 10 mg PO DAILY [facility] Last Admin: 04/07/18 08:09 Dose: 10 mg Diltiazem HCl 125 mg/ Sodium (Chloride) 125 mls @ 5 mls/hr IV.CONT TITRATE PRN ; Protocol PRN Reason: Per Protocol Last Titration: 04/07/18 07:47 Dose: 15 mg/hr, 15 mls/hr Lactulose (Lactulose Liq) 30 ml PO DAILY PRN PRN Reason: SEVERE CONSITIPATION Latanoprost (Xalatan 0.005% Opth Drops) 1 drop EACH EYE HS [facility] Last Admin: 04/06/18 20:26 Dose: 1 drop Ondansetron HCl (Zofran Inj) 4 mg IV.PUSH Q6H PRN PRN Reason: NAUSEA OR VOMITING Sennosides (Senokot) 17.2 mg PO Q12H PRN PRN Reason: Moderate Constipation Sodium Chloride (Ns Flush) 2 ml IV.FLUSH BID [facility] Last Admin: 04/07/18 08:10 Dose: 2 ml Sodium Chloride (Ns Flush) 2 ml IV.FLUSH PRN PRN PRN Reason: FLUSH AFTER USING IV ACCESS Allergies Allergy/AdvReac Type Severity Reaction Status Date / Time quinine Allergy Intermediate itching Unverified 05/09/17 17:50 Home Medications Medication Instructions Recorded Confirmed Type apixaban [Eliquis] 2.5 mg PO BID 04/04/18 04/04/18 History diltiazem HCl [Cardizem] 120 mg PO DAILY 04/04/18 04/04/18 History dorzolamide 1 drp OPHTHALMIC (EYE) TID 04/04/18 04/04/18 History escitalopram oxalate [Lexapro] 10 mg PO DAILY 04/04/18 04/04/18 History latanoprost 1 drp OPHTHALMIC (EYE) QPM 04/04/18 04/04/18 History Physical Exam Vital signs: Vital Signs 04/06/18 12:00 04/06/18 16:00 04/06/18 16:10 Temperature 97.8 F 97.7 F Pulse Rate 117 H 133 H 133 H Respiratory Rate 16 16 Blood Pressure 129/79 132/97 H Pulse Oximetry 98 98 04/06/18 20:00 04/07/18 00:00 04/07/18 04:00 Temperature 97.3 F L 97.8 F 97.8 F Pulse Rate 120 H 109 H 102 H Respiratory Rate 19 18 19 Blood Pressure 135/85 145/78 H 158/96 H Pulse Oximetry 97 95 96 04/07/18 08:00 Temperature 97.7 F Pulse Rate 134 H Respiratory Rate 16 Blood Pressure 140/108 H Pulse Oximetry 97 Intake & Output 04/06/18 04/07/18 04/07/18 18:59 06:59 18:59 Intake Total 1200 / 1200 Output Total 800 / 800 Balance 400 / 400 Weight 65.2 kg Intake: IV Cardizem Inj 125 MG In NS Inj 100 ML @ 5 MG/HR 5 mls/hr IV. CONT TITRATE PRN Rx#:[id number] Oral 1200 / 1200 Output: Urine 800 / 800 Other: # Voids 2 Date of Last Bowel Movement 04/05/18 04/05/18 Narrative: GENERAL: elderly lady, in no distress. HEENT:not pale,anicteric CARDIOVASCULAR: Tele: AF or LA tach with fluctuating HR. No S3 RESPIRATORY: Clear to auscultation. Breath sounds equal bilaterally. No wheezes , rales, or rhonchi. GASTROINTESTINAL: Abdomen soft, non-tender, nondistended. Normal active bowel sounds MUSCULOSKELETAL: Extremities without clubbing, cyanosis, or edema. NEURO: Alert & Oriented x4 to person, place, time, situation. Moves all ext x4 Results 04/04/18 14:52 04/04/18 14:52 Intake and Output 04/06/18 04/07/18 04/07/18 22:59 06:59 14:59 Intake Total 1200 / 1200 Output Total 800 / 800 Balance 400 / 400 Intake: IV Cardizem Inj 125 MG In NS Inj 100 ML @ 5 MG/HR 5 mls/hr IV. CONT TITRATE PRN Rx#:[id number] Oral 1200 / 1200 Output: Urine 800 / 800 Other: # Voids 2 Date of Last Bowel Movement 04/05/18 Weight 65.2 kg Assessment and Plan - Assessment (1) Atrial tachycardia Code(s): I47.1 - Supraventricular tachycardia Status: Acute - Plan For EPS tomorrow with Dr. Blanco. Cont. IV diltiazem in interim.
--- NOTE | 2018-04-07 11:08 | P.PNIM ---
Subjective Interval history: no new complaints. says sheet rock nailer saw her this morning and informed her of plans for possible ablation tomorrow. Physical Exam Vital signs: Last Vital Signs Temp 97.7 F 04/07/18 08:00 Pulse 134 H 04/07/18 08:00 Resp 16 04/07/18 08:00 BP 140/108 H 04/07/18 08:00 Pulse Ox 97 04/07/18 08:00 Intake & Output 04/05/18 04/06/18 04/07/18 04/08/18 06:59 06:59 06:59 06:59 Intake Total 485 / 485 450 / 450 1200 / 1200 68 / 68 Output Total 1350 / 1350 750 / 750 800 / 800 Balance -865 / -865 -300 / -300 400 / 400 68 / 68 Weight 63.6 kg 64.7 kg 65.2 kg Results Labs CBC & Chem 7: 04/04/18 14:52 04/04/18 14:52 Assessment and Plan (1) Atrial tachycardia: Code(s): I47.1 - Supraventricular tachycardia Status: Acute Plan 87-year-old white female with a history of A. fib status post cardioversion 6 months ago sent to the emergency room by her sheet rock nailer due to recurrent atrial fib with RVR. Atrial tachycardia-patient did not respond to IV Cardizem and initiated Cardizem drip. Heart rate fluctuating with episodes of tachycardia. Continue Cardizem drip for now, PO Cardizem was increased to 90mg q6h by sheet rock nailer. anticoagulation with Eliquis--now 5mg bid. appreciate cardiology consult recs,patient reports plan for ablation likely tomorrow. History of glaucomacontinue home medication Uncontrolled hypertensionmonitor while on Cardizem drip, IV Vasotec as needed. DVT prophylaxisEliquis Progress Note: Quality VTE Deep Vein Thrombosis/Pulmonary Embolism Present on Admission: No
[2018-04-07] MEDS: dilTIAZem Inj 125 MG in Sodium Chlor 0.9% Inj 100 ML IV.CONT PRN (20:20)
[2018-04-07] MEDS: Latanoprost 0.005% Opth Drops 2.5 ML Bottle EACH EYE SCH (20:42)
[2018-04-08] MEDS ORDERED: Heparin/NS PF Inj 1,500 ML ONE (09:30)
[2018-04-08] MEDS ORDERED: Lidocaine 1% Inj 50 ML Vial ONE (09:30)
[2018-04-08] MEDS ORDERED: Levofloxacin 500 mg Premix Inj 500 MG/100 ML PIGGYBACK IV.SIG ONE (09:30)
[2018-04-08] MEDS ORDERED: Protamine Sulfate Inj 50 MG/5 ML Vial ONE (10:32)
[2018-04-08] MEDS ORDERED: Isoproterenol HCl Inj 0.2 MG/ML Ampul ONE (10:32)
[2018-04-08] MEDS ORDERED: Heparin 10,000 UNITS/10 ML Vial (for IV use) ONE (10:32)
[2018-04-08] MEDS ORDERED: Heparin Drip 25,000 UNIT/250 ML BAG IV.CONT ONE (10:32)
--- NOTE | 2018-04-08 10:32 | P.PNIM ---
Subjective Interval history: feeling anxious in anticipation for her ablation procedure. Physical Exam Vital signs: Last Vital Signs Temp 97.9 F 04/08/18 08:00 Pulse 109 H 04/08/18 08:00 Resp 20 04/08/18 08:00 BP 140/103 H 04/08/18 08:00 Pulse Ox 97 04/08/18 08:00 Intake & Output 04/06/18 04/07/18 04/08/18 04/09/18 06:59 06:59 06:59 06:59 Intake Total 450 / 450 1200 / 1200 625 / 625 Output Total 750 / 750 800 / 800 400 / 400 Balance -300 / -300 400 / 400 225 / 225 Weight 64.7 kg 65.2 kg 65.7 kg Narrative: GENERAL: elderly woman in no distress. HEENT: not pale,anicteric NECK:no JVD CARDIOVASCULAR: Tachycardia, without murmurs, gallops, or rubs. RESPIRATORY: Clear to auscultation. Breath sounds equal bilaterally. No wheezes , rales, or rhonchi. GASTROINTESTINAL: Abdomen soft, non-tender, nondistended. Normal active bowel sounds MUSCULOSKELETAL: Extremities without clubbing, cyanosis, or edema. NEURO: Alert & Oriented x4 to person, place, time, situation. Moves all ext x4 Results Labs CBC & Chem 7: 04/04/18 14:52 04/04/18 14:52 Labs: Microbiology 04/06/18 17:15 Clean Catch Urine Urine Culture - Final >100,000 cfu/mL mixed gram positive bridgett (probable contaminantes) Assessment and Plan (1) Atrial tachycardia: Code(s): I47.1 - Supraventricular tachycardia Status: Acute Plan 87-year-old white female with a history of A. fib status post cardioversion 6 months ago sent to the emergency room by her recruitment coordinator due to recurrent atrial fib with RVR. Atrial tachycardia-patient did not respond Cardizem drip. Heart rate fluctuating with episodes of tachycardia. Continue Cardizem drip for now, PO Cardizem was increased to 90mg q6h by recruitment coordinator. anticoagulation with Eliquis--now 5mg bid. Patient for ablation today. History of glaucomacontinue home medication Uncontrolled hypertensionmonitor while on Cardizem drip, IV Vasotec as needed. DVT prophylaxisEliquis Progress Note: Quality VTE Deep Vein Thrombosis/Pulmonary Embolism Present on Admission: No
[2018-04-08] MEDS ORDERED: Sugammadex Inj 200 MG/2 ML Vial IV.PUSH ONE (12:52)
--- NOTE | 2018-04-08 13:27 | CATHPROC ---
Patient Name: Tabitha Carlson Study #: [id number] Initial MD: Noe Blanco Date of : 1930 Study Date: 04/08/2018 Cardiac Catheterization Report 04/08/2018 1:27:48 PM Financial #: [id number] Patient Name: Tabitha Carlson Study #: [id number] Initial MD: Noe Blanco Date of : 1930 Study Date: 04/08/2018 Entire Case Report Patient Information Patient Name Tabitha Carlson Date of 1930 Age 87 years Financial # [id number] Gender F AlternateID Lab Number 2 Room Number 1408 Height (in) 68.0 Height (cm) 172.7 BSA 1.78 Weight (lbs) 144.5 Weight (kg) 65.7 Patient Address/Phone Number Home Address [facility] Home Phone Number [phone] [facility] [address] Study Information Study Number Admission Scheduled Start Study Start [id number] Apr 04 2018 5:29PM 04/08/2018 Apr 08 2018 9:27AM [place] [facility] Cardiac Catheterization Admit Source Facility Department Other [facility] Physician and Clinical Staff Initial Noe Francois Configuration Management Analyst Georges Klein,RT(R) Other Anesthesia, INSTRUMENT ASSEMBLY SUPERVISOR Recorder Ambar Mendoza,RAYMON Scrub Mirela Rubin RCIS Procedures Performed Procedure Location (Site) Vessel Name Ablation Procedure ICE CATHETER INSERT RA Atruim RF Ablation LT. ATRIUM LT. ATRIUM Equipment Time Library Technician Description Size Mfg Part Number Used/Scraped NEEDLE, TRANSSEPTAL NRG 98 [id number] 09:29 [facility] Used C1 *[id number] [employer]/ EP [id number] 09:29 KIT, TRANSDUCER / AFIB Used PACER *[id number] 04/08/2018 1:27:48 PM Financial #: [id number] Patient Name: Tabitha Carlson Study #: [id number] Initial MD: Noe Blanco Date of : 1930 Study Date: 04/08/2018 [id number] CATHETER, TACTICATH ABLAT BUNDLE 09:29 [facility] Used 65 BUNDLE *[id number]- BUNDLE [id number] CATHETER, FR7 OPTIMA SPIRAL 09:29 [facility] FR7 *[id number]- Used BUNDLE BUNDLE [id number] 09:29 [facility] CATHETER, JSN, QUAD BUNDLE FR 5 *[id number]- Used BUNDLE [id number] 09:29 [facility] CATHETER, JSN, QUAD BUNDLE FR 5 *[id number]- Used BUNDLE [id number] SET, COOL POINT TUBING 09:29 [facility] *[id number]- Used BUNDLE BUNDLE SHEATH, FR8.5 STEERABLE SM 09:29 [facility] 71CM [id number] Used 71CM BUNDLE [id number] 13:00 [employer] VASCADE, FR5 CLOSURE SYSTEM FR 5 Used *[id number] 12:59 [employer] VASCADE, FR6 CLOSURE SYSTEM FR 6\\7 Used *[id number] 13:00 [employer] VASCADE, FR6 CLOSURE SYSTEM FR 6\\7 Used *[id number] 13:00 [employer]ICAL VASCADE, FR6 CLOSURE SYSTEM FR 6\\7 Used *[id number] 13:00 C[employer] MEDICAL VASCADE, FR6 CLOSURE SYSTEM FR 6\\7 Used *[id number] COVER, TRANSDUCER CABLE 612-113 09:29 [employer] Used ACUNAV *[id number] 09:29 CORDIS/PACER SHEATH, FR10 JUAN DANIEL 11CM FR 10 Used *[id number] 09:29 CORDIS/PACER SHEATH, FR9 JUAN DANIEL 11CM FR 9 [id number] Used [id number] 09:29 [employer]ES BLANKET,WARM AIR CCL * Used *[id number] 09:29 [employer] PACK, CCL CUSTOM * Used *[id number] 09:29 MEDLINE PACER STNOER, LIMB * 2530 *[id number] Used 09:29 [employer] MEDICAL SHEATH, FR5.5 PRELUDE 11CM FR 5 [id number] Used [id number] 09:29 NAMIC TUBING, HIGH PRESSURE 48" 48" Used *[id number] [id number] 09:29 NAMIC TUBING, HIGH PRESSURE 48" 48" Used *[id number] CATHETER, DECAPOLAR CSL 221004 11:46 [facility] FR 6 Used RESPONSE *2482113 FY1254 09:29 [facility] MEDICAL ELECTRODE KIT, PAVEL X SURFACE * Used *6950545 704096 09:29 [facility] SHEATH, EPS, FR6 FAST CATH FR 6 Used *0060225 09:29 [facility] MED[facility] SHEATH, EPS, FR7 FAST CATH FR 7 [id number] Used 063384 09:29 [facility] MED[facility] SHEATH, EPS, FR8 FAST CATH FR 8 Used *5777741 CATHETER, ACUNAV FR10 ICE [id number] 11:49 BRIDGETTE FR 10 Used (BRIDGETTE) *[id number] [facility] PAD, ELECTROSURGICAL 09:29 * [id number] *[id number] Used SURGICAL GROUNDING (BLUE) 04/08/2018 1:27:48 PM Financial #: [id number] Patient Name: Tabitha Carlson Study #: [id number] Initial MD: Noe Blanco Date of : 1930 Study Date: 04/08/2018 Insurance Information Insurance Payor Medicare Third Alliance Party Third Alliance Party Number MEDICARE A B MCRAB History: Allergies Allergy Reaction quinine itching History: Risk Factors Hypertension Dyslipidemia Yes Yes Labs Hgb (g/dl) Hct (%) RBC (MIL/MM3) WBC (l/cumm) Platelets (thousands) 11.60-17.00 35.00-51.00 4.00-5.90 4.00-11.00 150.00-450.00 12.0 36 3.6 5.4 214 Glucose (mg/dl) BUN (mg/dl) Creatinine (mg/dl) BUN:Creatinine (1:x) 74.00-106.00 7.00-18.00 0.50-1.30 10.00-20.00 132 17 0.8 21.3 Na (meq/l) K (meq/l) 136.00-145.00 3.50-5.10 132 4.3 INR (PTT:PT) 0.90-1.10 1.1 Medication Medication Total Dose (Bolus/Oral) Medication Total Dosage/Unit 1% XYLOCAINE 40 mL HEPARIN 29381 units PROTAMINE 40 mg 04/08/2018 1:27:48 PM Financial #: [id number] Patient Name: Tabitha Carlson Study #: [id number] Initial MD: Noe Blanco Date of : 1930 Study Date: 04/08/2018 Medications (Bolus/Oral) Medication Time Given Dosage/Unit Administered By Reason 04/08/2018 11:35:53 1% XYLOCAINE 20 mL Noe Blanco AM 20 mL 1% XYLOCAINE given pre op by Noe Blanco in Left Groin via Subcutaneous. 04/08/2018 11:40:42 1% XYLOCAINE 20 mL Noe Blanco AM 20 mL 1% XYLOCAINE given pre op by Noe Blanco in Right Groin via Subcutaneous. 04/08/2018 11:50:03 HEPARIN 26644 units Anesthesia, INSTRUMENT ASSEMBLY SUPERVISOR [place] [address] units HEPARIN given in lab by Anesthesia, INSTRUMENT ASSEMBLY SUPERVISOR via Peripheral IV. Ordered by Noe Blanco. Mojgan son: As per physicians verbal order. 04/08/2018 12:02:31 HEPARIN 1000 units Anesthesia, INSTRUMENT ASSEMBLY SUPERVISOR As per physicians verbal order PM 1000 units HEPARIN given in lab by Anesthesia, INSTRUMENT ASSEMBLY SUPERVISOR via Peripheral IV. Ordered by Noe Blanco. Reas on: As per physicians verbal order. 04/08/2018 12:15:28 HEPARIN 2000 units Anesthesia, INSTRUMENT ASSEMBLY SUPERVISOR As per physicians verbal order PM 2000 units HEPARIN given in lab by Anesthesia, INSTRUMENT ASSEMBLY SUPERVISOR via Peripheral IV. Ordered by Noe Blanco. Reas on: As per physicians verbal order. 04/08/2018 12:59:33 PROTAMINE 40 mg Anesthesia, INSTRUMENT ASSEMBLY SUPERVISOR As per physicians verbal order PM 40 mg PROTAMINE given in lab by Anesthesia, INSTRUMENT ASSEMBLY SUPERVISOR via Peripheral IV. Ordered by Noe Blanco. Reason: As per physicians verbal order. Medication (Drip) Medication Time Given Dosage/Unit Concentration/Unit Diluent (ml) Solution 04/08/2018 12:02:45 HEPARIN DRIP 1000 units/hr 55083 units 250 D5W PM 1000 units/hr HEPARIN DRIP given in lab by Anesthesia, INSTRUMENT ASSEMBLY SUPERVISOR via Peripheral IV. Pump/Drip Flow = 10 ml /hr [place] [address] units in 250 ml. Ordered by Noe Blanco. Reason: As per physicians verbal order. 04/08/2018 12:40:01 ISUPREL 10 mcg/min 1 mg 250 NaCl .9 PM 10 mcg/min ISUPREL given in lab by Anesthesia, INSTRUMENT ASSEMBLY SUPERVISOR via Peripheral IV. Pump/Drip Flow = 150 ml/hr usi ng NaCl .9 with a concentration of 1 mg in 250 ml. Ordered by Noe Blanco. 04/08/2018 12:50:56 ISUPREL DRIP STOPPED 0 units/hr 0 PM 0 units/hr ISUPREL DRIP STOPPED given in lab by Anesthesia, INSTRUMENT ASSEMBLY SUPERVISOR. Pump/Drip Flow = 0 ml/hr using [Mela ution Name]. Ordered by Noe Blanco. LEVAQUIN 04/08/2018 9:50:00 AM 100 mL/hr 500 100 NaCl .9 100 mL/hr LEVAQUIN given pre op by Ambar Mendoza RN in Right Forearm via Peripheral IV. Pump/Drip Flow = 0 ml/hr using NaCl .9 with a concentration of 500 in 100 ml. Ordered by Noe Blanco. Reason: As per physicians verbal order. for roblero insertion done on floor by MM 04/08/2018 1:27:48 PM Financial #: [id number] of 10 Patient Name: Tabitha Carlson Study #: [id number] Initial MD: Noe Blanco Date of : 1930 Study Date: 04/08/2018 Initial Case Assessment Cardiovascular HR Rhythm NIBP Chest Pain 135 af 180/111 0 Edema Present Skin color Skin None Normal Warm Dry Circulatory - Right Pulses Dorsalis Pedis 1 Scale (0,1,2,3,4,d) Circulatory - Left Pulses Dorsalis Pedis 1 Scale (0,1,2,3,4,d) Circulatory - Lower Extremities Color Lower Right Color Lower Left Normal Normal Neurological State Oriented to time-place- Alert Moves all extremities person Respiration - General Respiration Rate SpO2 (%) (B/min) 18 100 04/08/2018 1:27:48 PM Financial #: [id number] 6 of 10 Patient Name: Tabitha Carlson Study #: [id number] Initial MD: Noe Blanco Date of : 1930 Study Date: 04/08/2018 Final Case Assessment Cardiovascular HR Rhythm NIBP Chest Pain 64 sr 86/53 0 Edema Present Skin color Skin None Normal Warm Dry Circulatory - Right Pulses Dorsalis Pedis 1 Scale (0,1,2,3,4,d) Circulatory - Left Pulses Dorsalis Pedis 1 Scale (0,1,2,3,4,d) Circulatory - Lower Extremities Color Lower Right Color Lower Left Normal Normal Neurological State Unresponsive Comment: under anesthesia Respiration - General Respiration Rate SpO2 (%) O2 (lpm) (B/min) 16 99 50 Comment: lma Chronological Log Time Study Chronological Log 100 mL/hr LEVAQUIN given pre op by Ambar Mendoza RN in Right Forearm via Peripheral IV. Pum p/Drip Flow = 0 9:50:00 ml/hr using NaCl .9 with a concentration of 500 in 100 ml. Ordered by Noe Blanco. Reason : As per physicians verbal order. for roblero insertion done on floor by MM 10:46:07 Patient arrived via Bed. 10:46:08 Patient Name, D.O.B, / Armband Verified By R.N. 10:46:09 Consent signed by the physician and the patient and verified by the [facility] staff. 10:46:09 Pre-op and post- op instructions given; patient acknowledges understanding of instructions. 10:46:10 Verbal Stimulation=2 Physical Stimulation=2 Airway=2 Respiration=2 TOTAL=8. (0=absent, 1=li mited, 2=present) 10:46:21 Anesthesia at bedside. Assumes care of patient. Tanner 04/08/2018 1:27:48 PM Financial #: [id number] Patient Name: Tabitha Carlson Study #: [id number] Initial MD: Noe Blanco Date of : 1930 Study Date: 04/08/2018 10:46:23 Patient has been NPO for More than 6Hrs. 10:46:23 Skin Breakdown- none per pt 10:46:26 Patient Warmer Placed on the Table. 10:46:28 Disposable Defibrillator Pads Placed On Patient. 10:46:30 Reza Prominences Protected 10:46:31 A # 20 IV was noted in the Forearm (right). Grade = 0 0.9ns kvo 10:46:47 A # 20 IV was noted in the Antecubital (left). Grade = 0 0.9ns kvo and cardizem gtt from fl oor at 5ml/hr 10:47:12 History and physical on the chart or being dictated. Assessment: Initial Case, TD=986 BPM, Rhythm=af, EVRI=260/111 mmhg, Chest Pain=0, Edema=None, Color=Normal, Skin = Warm, Dry Right Pulses: Roqeu Ped=1 Left Pulses: Roque Ped=1 10:55:20 Lower Right Extremities: Color=Normal Lower Left Extremities: Color=Normal Neurological: State=Alert, Ox3, THORPE Respiration: Resp=18 B/min, HeL7=210 % 11:02:51 Cardizem gtt off 11:05:56 Anesthesiologist present for intubation 11:06:48 Table restraints applied according to hospital policy 11:07:12 Bilateral groins prepped with 2% chlorhexidine, and draped after a 3 minute waiting time. 11:10:26 Reference ECG taken 11:20:34 MD arrived. Time Out. Correct patient, procedure, procedure equipment, site and side verified with physicia n present. Time 11:31:00 concurred by MD, individual staff and INSTRUMENT ASSEMBLY SUPERVISOR. Time Out #2 - Consents verified, patient in correct position, all results are labled and displa yed, safety precautions 11:31:26 taken, antibiotics administered. Time out concurred by MD, individual staff and INSTRUMENT ASSEMBLY SUPERVISOR in procedu re 11:31:29 Case Start 11:31:49 Kevin in progress 11:34:59 Kevin complete 11:35:53 20 mL 1% XYLOCAINE given pre op by Noe Blanco in Left Groin via Subcutaneous. 11:36:57 Vascular access was obtained in the Fem Vein (left). 11:37:01 Vascular access was obtained in the Fem Vein (left). 11:37:04 Vascular access was obtained in the Fem Vein (left). 11:37:07 Vascular access was obtained in the Fem Vein (left). 11:37:16 Vascular access was obtained in the Fem Art (left). A SHEATH, FR5.5 PRELUDE 11CM FR 5 was advanced into the Fem Art (left) using the Modified Seldi nger technique. 11:37:25 0.9ns pessure bag connected. 11:38:27 A SHEATH, EPS, FR6 FAST CATH FR 6 was advanced into the Fem Vein (left) using the Modified Seldinger technique. 11:38:33 A SHEATH, EPS, FR7 FAST CATH FR 7 was advanced into the Fem Vein (left) using the Modified Seldinger technique. 11:38:36 A SHEATH, FR10 JUAN DANIEL 11CM FR 10 was advanced into the Fem Vein (left) using the Modified S eldinger technique. 11:40:42 20 mL 1% XYLOCAINE given pre op by Noe Blanco in Right Groin via Subcutaneous. 04/08/2018 1:27:48 PM Financial #: [id number] Patient Name: Tabitha Carlson Study #: [id number] Initial MD: Noe Blanco Date of : 1930 Study Date: 04/08/2018 11:42:28 Vascular access was obtained in the Fem Vein (right). 11:43:09 A SHEATH, FR10 JUAN DANIEL 11CM FR 10 was advanced into the Fem Vein (right) using the Modified Seldinger technique. A CATHETER, JSN, QUAD BUNDLE FR 5 was advanced vis Fem Vein (left) and placed in the CS. Placem ent was visually 11:44:00 confirmed under fluoroscopy. A CATHETER, JSN, QUAD BUNDLE FR 5 was advanced vis Fem Vein (left) and placed in the HIS. Place ment was 11:46:53 visually confirmed under fluoroscopy. 11:47:12 36 beginning temp 11:47:26 CATHETER, ACUNAV FR10 ICE (BRIDGETTE) FR 10 Was Postioned. A SHEATH, FR8.5 STEERABLE SM 71CM BUNDLE 71CM was exchanged in the Fem Vein (right). This was n ecessary in 11:49:26 order for catheter support. 11:49:51 [place] [address] units HEPARIN given in lab by Anesthesia, INSTRUMENT ASSEMBLY SUPERVISOR via Peripheral IV. Ordered by Dilma Blanco Reason: As per 11:50:03 physicians verbal order. 11:55:30 Activated Clotting Time Drawn 11:57:25 A eps was advanced to the right atrium and passed through the septal wall to the left atriu m. 11:57:36 [place] out A CATHETER, FR7 OPTIMA SPIRAL BUNDLE FR7 was advanced vis Fem Vein (right) and placed in the LA . Placement 11:58:59 was visually confirmed under fluoroscopy. Mapping in progress. 12:02:16 ACT (Normal Range 90-180) = 321 1000 units HEPARIN given in lab by Anesthesia, INSTRUMENT ASSEMBLY SUPERVISOR via Peripheral IV. Ordered by Noe Blanco . Reason: As per 12:02:31 physicians verbal order. 1000 units/hr HEPARIN DRIP given in lab by Anesthesia, INSTRUMENT ASSEMBLY SUPERVISOR via Peripheral IV. Pump/Drip Flow = 10 ml/hr using 12:02:45 [place] [address] units in 250 ml. Ordered by Hanscy. Bella Reason: As per stanley gabriel verbal order. 12:08:20 Activated Clotting Time Drawn 12:10:23 Mapping complete. Catheter was removed A CATHETER, TACTICATH ABLAT 65 BUNDLE was advanced vis Fem Vein (right) and placed in the LA. P lacement was 12:10:45 visually confirmed under fluoroscopy. 12:11:22 RF Ablation of the LT. ATRIUM with a CATHETER, TACTICATH ABLAT 65 BUNDLE. 12:15:21 ACT (Normal Range 90-180) = 320 2000 units HEPARIN given in lab by Anesthesia, INSTRUMENT ASSEMBLY SUPERVISOR via Peripheral IV. Ordered by Noe Blanco Reason: As per 12:15:28 physicians verbal order. 12:21:49 Activated Clotting Time Drawn 12:28:26 ACT (Normal Range 90-180) = 380 12:30:00 Ablation in progress 10 mcg/min ISUPREL given in lab by Anesthesia, INSTRUMENT ASSEMBLY SUPERVISOR via Peripheral IV. Pump/Drip Flow = 150 ml/ hr using NaCl .9 12:40:01 with a concentration of 1 mg in 250 ml. Ordered by Noe Blanco. 0 units/hr ISUPREL DRIP STOPPED given in lab by Anesthesia, INSTRUMENT ASSEMBLY SUPERVISOR. Pump/Drip Flow = 0 ml/hr usin g [Solution Name]. 12:50:56 Ordered by Noe Blanco. 12:55:20 All catheter(s) removed without difficulty A SHEATH, FR9 JUAN DANIEL 11CM FR 9 was exchanged in the Fem Vein (right). This was necessary in ord er to minimize 12:56:09 site leakage. 40 mg PROTAMINE given in lab by Anesthesia, INSTRUMENT ASSEMBLY SUPERVISOR via Peripheral IV. Ordered by Noe Blanco. R estefany: As per 12:59:33 physicians verbal order. 13:00:57 VASCADE, FR5 CLOSURE SYSTEM FR 5 placement in the Fem Art (left) 13:01:12 VASCADE, FR6 CLOSURE SYSTEM FR 6\\7 placement in the Fem Vein (left) 13:01:17 VASCADE, FR6 CLOSURE SYSTEM FR 6\\7 placement in the Fem Vein (left) 04/08/2018 1:27:48 PM Financial #: [id number] 9 of 10 Patient Name: Tabitha Carlson Study #: [id number] Initial MD: Noe Blanco Date of : 1930 Study Date: 04/08/2018 13:01:20 VASCADE, FR6 CLOSURE SYSTEM FR 6\\7 placement in the Fem Vein (left) 13:01:25 VASCADE, FR6 CLOSURE SYSTEM FR 6\\7 placement in the Fem Vein (right) 13:05:28 Activated Clotting Time Drawn 13:09:00 PACU called. Spoke to Denise 13:09:05 Bedside Report will be given. 13:12:26 ACT (Normal Range 90-180) = 191 13:13:44 Ablation procedure performed: AFIB. 13:13:52 EP Procedure was performed. 13:25:30 Sterile dressing applied to sites. sites wnl. Assessment: Final Case, HR=64 BPM, Rhythm=sr, NIBP=86/53 mmhg, Chest Pain=0, Edema=None, Color =Normal, Skin = Warm, Dry Right Pulses: Roque Ped=1 Left Pulses: Roque Ped=1 13:25:36 Lower Right Extremities: Color=Normal Lower Left Extremities: Color=Normal Neurological: State=Unresponsive, Comment=under anesthesia Respiration: Resp=16 B/min, SpO2=99 %, O2=50 lpm, Comment=lma 13:26:33 Case End (Physician broke scrub) 13:26:44 No case complications noted. 13:26:45 Cine recording checked. 13:26:48 Defibrillator and ground pads removed. Skin intact. 13:36:52 Patient moved to stretcher End Study - Contrast Media Used In Study Contrast Total Opened (mL) Total Used (mL) Total Wasted (mL) Unspecified 0 0 0 End Study - Maximum Contrast Load Max Contrast Load (mL) 410.5 End Study - Radiation Exposure Fluoro Time (minutes) 6.9 End Study - Patient Disposition Complications Transferred To Interventional Outcome No Telemetry Bed successful 04/08/2018 1:27:48 PM Financial #: [id number]
[2018-04-08] MEDS ORDERED: fentaNYL Citrate Inj 100 MCG/2 ML Ampul ONE (13:50)
[2018-04-08] MEDS ORDERED: *Ondansetron Inj 4 MG/2 ML Vial PERIprocedural Use ONLY ONE (13:58)
[2018-04-08] MEDS: Escitalopram 10 MG Tablet PO SCH (14:32)
[2018-04-08] MEDS: Dorzolamide 2% Opth Drops 10 ML Bottle EACH EYE SCH (14:32)
[2018-04-08] MEDS: Amiodarone 200 MG Tablet PO SCH (15:45)
[2018-04-09 05:17] LABS: Activated Partial Thrombo Time 30.4 sec (23.4-31.7); INR 1.1 Ratio; Prothrombin Time 11.3 sec (9.8-11.6)
[2018-04-09] MEDS: Dorzolamide 2% Opth Drops 10 ML Bottle EACH EYE SCH ×4 (05:26→18:32)
[2018-04-09] MEDS: Latanoprost 0.005% Opth Drops 2.5 ML Bottle EACH EYE SCH ×2 (05:26→20:49)
[2018-04-09] MEDS: Amiodarone 200 MG Tablet PO SCH (09:29)
[2018-04-09] MEDS: Escitalopram 10 MG Tablet PO SCH (09:29)
--- NOTE | 2018-04-09 09:35 | ECG ---
Date Performed: 04/08/2018 Time Performed: 14:03:05 PTAGE: 87 years EKG: Sinus rhythm WITH SHORT AL INTERVAL WITH OCCASIONAL SUPRAVENTRICULAR PREMATURE COMPLEXES MARKED LEFT AXIS DEVIATI ON MODERATE T-WAVE ABNORMALITY, CONSIDER ANTERIOR ISCHEMIA ABNORMAL ECG PREVIOUS TRACING : 04/04/2018 14.38 DOCTOR: Nakul Bourne Interpretating Date/Time 04/09/2018 09:34:41
--- NOTE | 2018-04-09 12:16 | ECG ---
Date Performed: 04/09/2018 Time Performed: 08:59:12 PTAGE: 87 years EKG: Sinus rhythm with PAC(s) Leftward axis Poor R wave progression - probable normal variant Anterior T wave changes are nonspecific Borderline ECG PREVIOUS TRACING : 04/08/2018 14.03 DOCTOR: Nakul Bourne Interpretating Date/Time 04/09/2018 12:14:38
--- NOTE | 2018-04-09 12:43 | P.PCNCA ---
Atrial Fibrillation Ablation - Afib Ablation Procedure Date: 04/08/18 Atrial Fibrillation Ablation: PROCEDURES PERFORMED: 1. Electrophysiology study on Isuprel infusion 2. CS cannulation 3. 3-D mapping 4. Transseptal approach 5. Right and left heart catheterization 6. Intracardiac echo 7. Radiofrequency ablation of atrial fibrillation 8. Pulmonary vein isolation 9. Posterior wall ablation 10. Mitral valve isolation 11. Mitral line creation 12. Left atrial tachycardia ablation 13. Roof line creation 14. Floor line creation 15. Anterior wall ablation INDICATIONS FOR THE PROCEDURE Tabitha Carlson is a 87-year-old F with hx of atrial fibrillation, previous ablation over 4 years ago, heart rate difficult to control, referred for electrophysiology study and ablation. The patient is symptomatic and on anticoagulation. The risks, the nature and the benefits of the procedure were clearly stated to the patient. The risks include pneumothorax, cardiac perforation, stroke, need for open heart surgery and even . The patient understood and agreed to proceed. DESCRIPTION OF THE PROCEDURE IN DETAIL After written informed consent was obtained prior to esophageal echocardiogram, the patient was kept on the table where and was prepped and draped in the usual sterile fashion. Conscious sedation was initiated and maintained throughout the procedure by the anesthesiologist. Once sedation was verified, the right and left inguinal areas were anesthetized with 2% Xylocaine. Using modified Seldinger technique, the left femoral vein was cannulated on three occasions, three guidewires were advanced. Over the wire a 6, 7 and a 10-Mauritian Hemaquet were advanced. Then the left femoral artery was cannulated on one occasion, one guidewire was advanced. Over the wire a 4-Mauritian Hemaquet was advanced. Then the right femoral vein was cannulated on one occasion, one guidewire was advanced. Over the wire a 8-Mauritian Hemaquet was advanced. Then under fluoroscopic guidance through the 6 and 7-Mauritian Hemaquet, two 5-Mauritian Vincent curved quadripolar electrophysiology catheters were advanced and placed around the His as well as coronary sinus. Basic interval was measured. The patient was in atrial fibrillation. Through the 10-Mauritian Hemaquet, a ImageVisionter AcuNav intracardiac echo catheter was advanced and placed at the right atrium. Multiple view was obtained. There is no pericardial effusion, pulmonary vein was seen, atrial septal was visualized. Then the 8-Mauritian Hemaquet in the right femoral vein was exchanged for Agilis transseptal sheath that was placed all the way to the superior vena cava. Through the sheath a Bev needle was advanced, then the sheath, the dilator and the needle were progressed until foci engaged. Once engaged, the needle was advanced. RF was delivered for 2 seconds. I was able to cross into the left atrium. Once the needle crossed, the dilator was advanced. Once the dilator crossed, the sheath was advanced. Once the sheath crossed, the dilator and the needle were removed. At this point I did flood the system and fluid movement was seen in the left atrium the indicates the sheath is in good position. The patient already received 10,000 units of heparin. The goal is to keep an ACT around 350 during ablation. Then through the sheath a [place] 20 pulse circumferential catheter was advanced. Using IBillionaire endocardial solution mapping system, a two-dimensional configuration of the left atrium was obtained. Points were taken at the left superior and inferior veins, right superior and inferior veins, mitral valve, and appendages. Then through the sheath a [place]. [place]rice TactiCath 65cm 3.5mm irrigated tipped mapping and radiofrequency ablation catheter was advanced. Esophageal probe was placed temperature monitoring during ablation. When it increased to 0.5 degrees Celsius above baseline, I moved to a different area of the atrium. First I did isolate the left superior and inferior vein. Patient was already in left atrial tach. Cycle length prolonged. Then I did ablate around the lateral wall. Erika was early activation. Tachycardia CL increased. Then Right superior and inferior veins were still active. I did isolate both. Posterior was ablated. I decided to box the posterior wall. While doing the floor line, CL prolonged and patient converted into sinus rhythm. At that point I did advance the circumferential catheter again into the vein. There was no signal into the vein, pacing from the vein showed no conduction to the atrium. Isuprel infusion was initiated at 10 mcg for 15 minutes. No tachyarrhythmia was induced, post Isuprel no tachyarrhythmia was induced. At that point the procedure was complete. All catheters were removed, atrial septal sheath was exchanged for 9-Mauritian Hemaquet , intracardiac echo showed no pericardial effusion. There is still good flow in the pulmonary vein. The patient is going to be transferred to the recovery room. No incident report. The patient tolerated the procedure. Blood loss was minimal. FINDINGS 1. Electrocardiogram: At baseline the patient was in atrial fibrillation, post procedure the patient was in sinus rhythm. 2. Basic interval: Base cycle length was around 430ms . Post ablation she was around 1080 milliseconds. AH at 96 and HV at 42 milliseconds. 3. Tachyarrhythmia: Atrial fibrillation was mapped and ablated. Atrial tachycardia was ablated. The ablation was successful. CONCLUSION Successful electrophysiology study, mapping, radiofrequency ablation of atrial fibrillation, left atrial tachycardia, pulmonary vein isolation, posterior ablation, mitral valve isolation, mitral line creation, roof line creation, floor line creation, left atrial tachycardia. COMMENTS AND RECOMMENDATIONS The patient is going to be transferred to the telemetry unit. Will be observed and when stable can be discharged home.
--- NOTE | 2018-04-09 12:47 | P.PN ---
Subjective Interval history: Feeling better . But some chest discomfort Physical Exam Vital signs: Vital Signs 04/08/18 13:43 04/08/18 14:00 04/08/18 14:15 Temperature 97.5 F L Pulse Rate 82 80 71 Respiratory Rate 15 15 17 Blood Pressure 128/80 122/76 130/78 Pulse Oximetry 99 98 98 04/08/18 14:35 04/08/18 16:00 04/08/18 16:48 Temperature 97.4 F L 98.1 F Pulse Rate 71 73 74 Respiratory Rate 17 18 Blood Pressure 144/87 H 149/83 H Pulse Oximetry 99 97 04/08/18 18:02 04/08/18 19:00 04/08/18 20:00 Temperature 98.1 F Pulse Rate 96 H 90 86 Respiratory Rate 16 Blood Pressure 143/69 H Pulse Oximetry 98 04/08/18 21:00 04/08/18 22:00 04/08/18 23:00 Temperature Pulse Rate 80 82 85 Respiratory Rate Blood Pressure Pulse Oximetry 04/09/18 00:00 04/09/18 01:00 04/09/18 02:00 Temperature 97.7 F Pulse Rate 80 90 96 H Respiratory Rate 16 Blood Pressure 140/78 Pulse Oximetry 98 04/09/18 03:00 04/09/18 04:00 04/09/18 05:00 Temperature 97.7 F Pulse Rate 100 H 86 92 H Respiratory Rate 16 Blood Pressure 138/71 Pulse Oximetry 99 04/09/18 06:00 04/09/18 07:00 04/09/18 08:00 Temperature Pulse Rate 90 112 H 92 H Respiratory Rate Blood Pressure Pulse Oximetry 04/09/18 08:05 04/09/18 09:00 04/09/18 10:00 Temperature 98.0 F Pulse Rate 91 H 94 H 103 H Respiratory Rate 18 Blood Pressure 137/71 Pulse Oximetry 95 04/09/18 11:00 04/09/18 12:00 Temperature 98.1 F Pulse Rate 105 H 89 Respiratory Rate 20 Blood Pressure 149/75 H Pulse Oximetry 97 Intake & Output 04/08/18 04/09/18 04/09/18 18:59 06:59 18:59 Intake Total 80 / 80 240 / 240 Output Total 150 / 150 150 / 150 Balance -70 / -70 90 / 90 Weight 65.2 kg Intake: IV 80 / 80 Cardizem Inj 125 MG In NS Inj 80 / 80 100 ML @ 5 MG/HR 5 mls/hr IV. CONT TITRATE PRN Rx#:[id number] Oral 240 / 240 Output: Urine Amount (Catheter) 150 / 150 150 / 150 Indwelling Urethral Catheter 150 / 150 150 / 150 Other: # Voids 0 Date of Last Bowel Movement 04/05/18 04/05/18 - Constitutional no acute distress - Routine HEENT Exam Head: Present: normocephalic Eye: Present: PERRL ENT: Present: mucous membranes moist - Routine Respiratory Exam Present: CTA bilaterally - Routine Cardiovascular Exam Present: RRR, S1, S2 - Routine Neurological Exam Present: alert, oriented X3 - Detailed Neurological Exam: Coma Scale Eye Opening: Spontaneous Verbal Response: Oriented Motor Response: Obey commands Lisa Coma Scale Total: 15 - Urinary Catheter Management Indwelling Urethral Catheter Cath placed during this visit: yes Reason for continuing: Hourly intake/output Insertion date: 04/08/18 Results - Labs CBC & Chem 7: 04/04/18 14:52 04/04/18 14:52 Laboratory Results - last 24 hr 04/09/18 03:53 PT 11.3 INR 1.1 APTT 30.4 Microbiology 04/06/18 17:15 Clean Catch Urine Urine Culture - Final >100,000 cfu/mL mixed gram positive bridgett (probable contaminantes) Assessment and Plan - Assessment (1) Atrial tachycardia Code(s): I47.1 - Supraventricular tachycardia Status: Acute Plan: SP atrial fibrillation, left atrial tachycardia ablation. In sinus rhythm Doing better Some chest pain. Most likely pericarditis. Colchicine will be added Can be DH when ok with the managing team. I will be available on a PRN basis. Follow up in 3-4 weeks.
--- NOTE | 2018-04-09 18:00 | P.PNIM ---
Subjective Interval history: Patient complains of some chest pain diffusely across her chest. She says it is somewhat better than yesterday. Physical Exam Vital signs: Vital Signs 04/08/18 18:02 04/08/18 19:00 04/08/18 20:00 Temperature 98.1 F Pulse Rate 96 H 90 86 Respiratory Rate 16 Blood Pressure 143/69 H Pulse Oximetry 98 04/08/18 21:00 04/08/18 22:00 04/08/18 23:00 Temperature Pulse Rate 80 82 85 Respiratory Rate Blood Pressure Pulse Oximetry 04/09/18 00:00 04/09/18 01:00 04/09/18 02:00 Temperature 97.7 F Pulse Rate 80 90 96 H Respiratory Rate 16 Blood Pressure 140/78 Pulse Oximetry 98 04/09/18 03:00 04/09/18 04:00 04/09/18 05:00 Temperature 97.7 F Pulse Rate 100 H 86 92 H Respiratory Rate 16 Blood Pressure 138/71 Pulse Oximetry 99 04/09/18 06:00 04/09/18 07:00 04/09/18 08:00 Temperature Pulse Rate 90 112 H 92 H Respiratory Rate Blood Pressure Pulse Oximetry 04/09/18 08:05 04/09/18 09:00 04/09/18 10:00 Temperature 98.0 F Pulse Rate 91 H 94 H 103 H Respiratory Rate 18 Blood Pressure 137/71 Pulse Oximetry 95 04/09/18 11:00 04/09/18 12:00 04/09/18 13:04 Temperature 98.1 F Pulse Rate 105 H 89 87 Respiratory Rate 20 Blood Pressure 149/75 H Pulse Oximetry 97 04/09/18 14:25 04/09/18 15:02 04/09/18 16:02 Temperature 97.9 F Pulse Rate 98 H 99 H 87 Respiratory Rate 20 Blood Pressure 150/81 H Pulse Oximetry 98 04/09/18 16:05 04/09/18 17:00 Temperature Pulse Rate 87 108 H Respiratory Rate Blood Pressure Pulse Oximetry Intake & Output 04/08/18 04/09/18 04/09/18 18:59 06:59 18:59 Intake Total 80 / 80 240 / 240 Output Total 150 / 150 150 / 150 Balance -70 / -70 90 / 90 Weight 65.2 kg Intake: IV 80 / 80 Cardizem Inj 125 MG In NS Inj 80 / 80 100 ML @ 5 MG/HR 5 mls/hr IV. CONT TITRATE PRN Rx#:[id number] Oral 240 / 240 Output: Urine Amount (Catheter) 150 / 150 150 / 150 Indwelling Urethral Catheter 150 / 150 150 / 150 Other: # Voids 0 Date of Last Bowel Movement 04/05/18 04/05/18 Narrative: General patient complains of some chest pain which is diffuse across her chest, somewhat better than yesterday. HEENT extraocular movements are intact, clear oropharyngeal mucosa, no JVD Cardiovascular S1-S2 audible, RRR Respiratory clear to auscultation bilaterally Abdomen soft, nontender, nondistended, normal bowel sounds Extremities no edema 2+ distal pulses in bilateral upper and lower extremities Neuro cranial nerves II through XII intact - Urinary Catheter Management Indwelling Urethral Catheter Cath placed during this visit: yes Reason for continuing: Hourly intake/output Insertion date: 04/08/18 Results - Labs CBC & Chem 7: 04/04/18 14:52 04/04/18 14:52 Laboratory Results - last 24 hr 04/09/18 03:53 PT 11.3 INR 1.1 APTT 30.4 Assessment and Plan - Assessment (1) Atrial tachycardia Code(s): I47.1 - Supraventricular tachycardia Status: Acute - Plan This patient is a 87-year-old female with a history of atrial fibrillation and had ablation done approximately 4 years ago. The patient was cardioverted approximately [address] Blanco in the emergency department due to a persistent elevated heart rate as per documentation. Is unclear whether the patient was in atrial fibrillation or SVT during that time. She now came into the emergency department with complaints of palpitations and was found to be in atrial flutter with rapid ventricular rate. 1. Atrial fibrillation with rapid ventricular rate status post ablation Patient initially did not respond to IV Cardizem and was initiated on Cardizem drip. Cardiology consulted to evaluate the patient. Patient subsequently underwent ablation which appears to be successful. She is now in sinus rhythm, heart rate under control. On Eliquis 5 mg twice daily. Patient complains of some chest pain today likely from the procedure. Started on colchicine by the EP. Plan is to discharge the patient home tomorrow a.m. Continue amiodarone. Diltiazem discontinued Continue to monitor on telemetry. 2. Hypertension Patient will be started on Norvasc. DVT prophylaxis, the patient is currently on Eliquis.
--- NOTE | 2018-04-09 18:01 | P.DCO ---
- Physical Therapy Order: Evaluate and treat - Home Health Nursing Order: Medical education, Medication education-adverse effect - Case Management Consult Case Management Consult-Home Health: Yes - Certification I have seen patient Tabitha Carlson on 04/09/18. My clinical findings support the need for the requested home health care services because: Medication compliance is questionable, High risk of falls I certify that my clinical findings support that this patient is homebound because: Unsafe to leave home unassisted
[2018-04-09 23:56] VITALS: RESP 18
[2018-04-10 08:04] VITALS: BP 145/85; TEMP 97.9; O2SAT 94
--- NOTE | 2018-04-10 08:12 | P.DS ---
Date of admission: 04/04/18 17:29 Primary care physician: PROVIDER NON STAFF Brief History from admission: This patient is a 87-year-old female with a history of atrial fibrillation and had ablation done approximately 4 years ago. The patient was cardioverted approximately [address] Blanco in the emergency department due to a persistent elevated heart rate as per documentation. Is unclear whether the patient was in atrial fibrillation or SVT during that time. She now came into the emergency department with complaints of palpitations and was found to be in atrial flutter with rapid ventricular rate. DS: Diagnosis - Discharge Diagnosis (1) Atrial tachycardia Status: Acute DS: Medications - Discharge Medications Prescriptions: amiodarone 400 mg PO DAILY #60 tab amlodipine [Norvasc] 5 mg PO DAILY #30 tab apixaban [Eliquis] 5 mg PO BID #60 tab colchicine [Colcrys] 0.6 mg PO BID #10 tab DS: Summary Hospital Course: This patient is a 87-year-old female with a history of atrial fibrillation and had ablation done approximately 4 years ago. The patient was cardioverted approximately [address] Blanco in the emergency department due to a persistent elevated heart rate as per documentation. Is unclear whether the patient was in atrial fibrillation or SVT during that time. She now came into the emergency department with complaints of palpitations and was found to be in atrial flutter with rapid ventricular rate. 1. Atrial fibrillation with rapid ventricular rate status post ablation Patient initially did not respond to IV Cardizem and was initiated on Cardizem drip. Cardiology consulted to evaluate the patient. Patient subsequently underwent left atrial ablation which appears to be successful. She is now in sinus rhythm, heart rate under control. On Eliquis 5 mg twice daily. Patient complains of some chest pain today likely from the procedure. Started on colchicine by the EP. Plan is to discharge the patient home tomorrow a.m. Continue amiodarone. Diltiazem discontinued, HR under control. No significant events overnight on telemetry. Follow up with primary care doctor in one week. Patient should also follow up with Dr. Blanco in 3-4 weeks as per his recommendations. Scripts for medication given to the patient prior to discharge. 2. Hypertension Patient will be started on Norvasc. - Time Spent with Patient Total time spent providing and/or coordinating discharge services: Greater than 30 minutes - Quality: VTE Deep Vein Thrombosis/Pulmonary Embolism Present on Admission: No Exam Vital signs: Vital Signs 04/09/18 09:00 04/09/18 10:00 04/09/18 11:00 Temperature Pulse Rate 94 H 103 H 105 H Respiratory Rate Blood Pressure Pulse Oximetry 04/09/18 12:00 04/09/18 13:04 04/09/18 14:25 Temperature 98.1 F Pulse Rate 89 87 98 H Respiratory Rate 20 Blood Pressure 149/75 H Pulse Oximetry 97 04/09/18 15:02 04/09/18 16:02 04/09/18 16:05 Temperature 97.9 F Pulse Rate 99 H 87 87 Respiratory Rate 20 Blood Pressure 150/81 H Pulse Oximetry 98 04/09/18 17:00 04/09/18 18:15 04/09/18 19:00 Temperature Pulse Rate 108 H 91 H 102 H Respiratory Rate Blood Pressure Pulse Oximetry 04/09/18 20:00 04/09/18 20:55 04/09/18 21:00 Temperature 98 F Pulse Rate 83 80 Respiratory Rate 18 Blood Pressure 129/71 Pulse Oximetry 98 95 04/09/18 22:00 04/09/18 23:00 04/09/18 23:55 Temperature 98.6 F Pulse Rate 77 79 82 Respiratory Rate 18 Blood Pressure 137/78 Pulse Oximetry 97 04/09/18 23:58 04/10/18 01:00 04/10/18 02:00 Temperature Pulse Rate 79 84 80 Respiratory Rate Blood Pressure Pulse Oximetry 04/10/18 03:00 04/10/18 04:00 04/10/18 05:00 Temperature 98.6 F Pulse Rate 80 75 75 Respiratory Rate 18 Blood Pressure 138/79 Pulse Oximetry 97 04/10/18 05:48 04/10/18 07:00 04/10/18 07:56 Temperature 97.9 F Pulse Rate 83 85 81 Respiratory Rate Blood Pressure 145/85 H Pulse Oximetry 94 L 04/10/18 08:00 Temperature Pulse Rate 90 Respiratory Rate Blood Pressure Pulse Oximetry Intake & Output 04/09/18 04/10/18 04/10/18 18:59 06:59 18:59 Intake Total 960 / 960 240 / 240 Output Total 500 / 500 Balance 460 / 460 240 / 240 Weight 68.2 kg Intake: Oral 960 / 960 240 / 240 Output: Urine 500 / 500 Other: # Voids 2 2 Date of Last Bowel Movement 04/07/18 Narrative: General Patient says she feels well this morning. HEENT extraocular movements are intact, clear oropharyngeal mucosa, no JVD Cardiovascular S1-S2 audible, RRR Respiratory clear to auscultation bilaterally Abdomen soft, nontender, nondistended, normal bowel sounds Extremities no edema 2+ distal pulses in bilateral upper and lower extremities Neuro cranial nerves II through XII intact Results Procedures completed during hospitalization: Left atrial ablation. - Impressions ITS Impressions Chest X-Ray 04/04/18 14:34 CONCLUSION: Increased interstitial markings likely related to underlying interstitial disease or pulmonary venous hypertension. Venous Doppler Study 04/04/18 14:59 CONCLUSION: 1. No sonographic evidence for lower extremity DVT. Discharge Plan - Discharge Disposition Patient Disposition: /Home Health Service - Discharge Condition Condition: Good - Discharge Order Discharge Orders: Discharge Order (Routine); Ordered 04/10/18 Ordered By: Meche King Cardiology Clear for Discharge (Routine); Ordered 04/09/18 Ordered By: Noe Blanco ED Use Only Admit Order (Routine); Ordered 04/04/18 Ordered By: Maximo Sparks - Physicians Team Primary Care Provider: NON STAFF,PROVIDER Attending Provider: Meche King Other Providers: Jaren Holliday MD
[2018-04-10] MEDS: Amiodarone 200 MG Tablet PO SCH (08:44)
[2018-04-10] MEDS: Escitalopram 10 MG Tablet PO SCH (08:44)
[2018-04-10] MEDS: Dorzolamide 2% Opth Drops 10 ML Bottle EACH EYE SCH (08:45)
[2018-04-10] MEDS ORDERED: amLODIPine 5 MG Tablet PO SCH (09:00)
[2018-04-10 09:15] VITALS: PULSE 78
== END 2018-04-10 10:52 | disposition home health service (06) ==
LOC: NEPE 14:18 → NEDA 17:29 → N04 20:50 → HCIS 04-08 13:24 → HCPC 04-08 16:22
PROVIDERS: ADMIT Hospitalist; ATTEND Hospitalist